=== PATIENT | female | born 1930 | race African-American/Black ===

== ENCOUNTER 2017-09-18 19:32 | Inpatient (IN) | payer MEDICARE ==
[~2017-09-18] VITALS: Ht 162.6 cm; Wt 63.5 kg
[~2017-09-18 19:32] MED LIST: HUMALOG100 UNIT/4 SUBQ
[2017-09-18] MEDS ORDERED: Sodium Chloride 500ML 500 ML IV ONE (19:45)
[2017-09-18 20:25] LABS: BASOPHILS % (AUTO) 1.3 % (0.0-2.0); LYMPHOCYTES % (AUTO) 27.3 % (20.0-45.0); MEAN CORPUSCULAR HEMOGLOBIN 26.6 PG (27.0-31.0); MEAN CORPUSCULAR HGB CONC 30.3 G/DL (32.0-36.0); MEAN CORPUSCULAR VOLUME 88 FL (80-99); MEAN PLATELET VOLUME 6.3 FL (6.5-10.1); MONOCYTES % (AUTO) 5.7 % (1.0-10.0); NEUTROPHILS % (AUTO) 64.7 % (45.0-75.0); PLATELET COUNT 173 K/UL (150-450); RED BLOOD COUNT 3.94 M/UL (4.20-5.40); RED CELL DISTRIBUTION WIDTH 13.5 % (11.6-14.8); WHITE BLOOD COUNT 8.4 K/UL (4.8-10.8)
[2017-09-18 20:37] LABS: ANION GAP 10 mmol/L (5-15); CALCIUM 9.1 MG/DL (8.5-10.1); CARBON DIOXIDE 22 MMOL/L (21-32); CHLORIDE 108 MMOL/L (98-107); POTASSIUM 4.4 MMOL/L (3.5-5.1); SODIUM 140 MMOL/L (136-145)
[2017-09-18 20:51] LABS: ALANINE AMINOTRANSFERASE 15 U/L (12-78); ALBUMIN/GLOBULIN RATIO 0.6 (1.0-2.7); ASPARTATE AMINO TRANSFERASE 31 U/L (15-37); CKMB < 0.5 NG/ML (0.0-3.6); TOTAL PROTEIN 8.3 G/DL (6.4-8.2)
[2017-09-18] MEDS ORDERED: Enoxaparin 60mg Inj SUBQ ONE (22:00)
[2017-09-18 22:01] VITALS: BP 176/127
[2017-09-18 22:14] LABS: INR 1.2 (0.9-1.1); PROTHROMBIN TIME 12.3 SEC (9.30-11.50)
[2017-09-18 22:16] LABS: APPEARANCE,URINE CLEAR; KETONES,URINE 2+ (NEGATIVE); LEUKOCYTE ESTERASE ,URINE NEGATIVE (NEGATIVE); NITRITE,URINE NEGATIVE (NEGATIVE); PH,URINE 6 (4.5-8.0); PROTEIN,URINE 3+ (NEGATIVE); UROBILINOGEN,URINE NORMAL MG/DL (0.0-1.0)
[2017-09-18 22:25] LABS: BACTERIA,URINE FEW /HPF; SQUAMOUS EPITHELIAL CELL,UR FEW /LPF (NONE/OCC); WBC,URINE 0-2 /HPF (0 - 2)
[2017-09-18 22:43] VITALS: BP 149/59
--- NOTE | 2017-09-18 22:51 | Emergency Room Report ---
History of Present Illness General Chief Complaint: Altered Level of Consciousness Source: Family Member, EMS Present Illness HPI 87-year-old female presents ED for evaluation. EMS states that patient was found altered and her family's car tonight. Family states that patient is been more altered unusual for last 2 days. Family states that patient initially complained of some chest pain earlier today. Upon arrival patient showing no signs of distress. Unable to provide any additional history at this time. No other aggravating relieving factors. No other associated symptoms Allergies: Coded Allergies: No Known Allergies (Unverified , 09/18/17) Patient History Past Medical History: DM, HTN Past Surgical History: none Pertinent Family History: none Social History: Denies: smoking, alcohol use, drug use Last Menstrual Period: N/A Immunizations: UTD Reviewed Nursing Documentation: PMH: Agreed, PSxH: Agreed Nursing Documentation-PMH Hx Cardiac Problems: Yes - CAD Hx Hypertension: Yes Hx Diabetes: Yes Review of Systems All Other Systems: limited Physical Exam Vital Signs Date Time Temp Pulse Resp B/P (MAP) Pulse Ox O2 Delivery O2 Flow Rate FiO2 09/18/17 19:27 97.3 86 18 126/76 99 Room Air Sp02 EP Interpretation: reviewed, normal General Appearance: lethargic Head: normocephalic ENT: normal ENT inspection Respiratory: chest non-tender, lungs clear, normal breath sounds, speaking full sentences Cardiovascular #1: regular rate, rhythm, no edema Gastrointestinal: normal bowel sounds, non tender, soft, non-distended, no guarding, no rebound Rectal: deferred Genitourinary: no CVA tenderness Musculoskeletal: normal inspection Neurologic: other - lethargic Psychiatric: other - lethargic Skin: normal inspection Lymphatic: normal inspection Procedures Critical Care Time Critical Care Time i. I feel this is a highly complex case requiring extensive working including EKG/Rhythm strip, Xray/CT/US, Blood/urine lab work, repeat exams while in ED, and administration of strong opiates/narcotics for pain control, admission to hospital or close patient follow up. Total time: 30 min bedside evaluation and treatment excludes procedures (EKG). Reason for critical care: Altered level of consciousness, positive troponin Possible complications: hypotension, hypertension, MO, shock, arrhythmias, metabolic acidosis, end organ damage, respiratory failure. Interventions: Labs, IV fluids, EKG, chest x-ray, CT head, aspirin, Lovenox Course: Patient brought in with altered mental status. CT head negative. Troponin elevated. Family states that patient did endorse some chest pain earlier today. EKG shows no evidence of ST elevation. Given aspirin rectal. Given Lovenox. Consultations: nursing staff, EMS, family Performed by: Dr Davila Tolerated well condition = critical j. because of unstable vital signs this patient had a condition that could potentially threaten life or limb. I feel this is a critical patient who required my full attention while patient was considered critical. Total Critical Care Time excluding procedures was greater than 35 minutes Medical Decision Making Diagnostic Impression: Primary Impression: Altered level of consciousness Additional Impression: NSTEMI (non-ST elevated myocardial infarction) ER Course Hospital Course 87-year-old female presents with altered mental status Differential diagnoses include: MO/unstable angina, dehydration, sepsis, UTI Clinical course She placed on stretcher. After initial history and physical I ordered labs, IV fluid, EKG, chest x-ray, CT head labs reviewed- no leukocytosis, electrolytes ok, trop elevated EKG-no evidence of ST elevation Chest x-ray- no acute process CT head - chronic ischemic changes Patient is altered here. Endorsing chest pain. However family states that patient did endorse chest pain earlier today Given aspirin, Lovenox. Case discussed with Dr. Judge and he agreed to accept the patient to his service for further care and support Dr Childs (cardiology) will consult I. I feel this is a highly complex case requiring extensive working including EKG/Rhythm strip, Xray/CT/US, Blood/urine lab work, repeat exams while in ED, and administration of strong opiates/narcotics for pain control, admission to hospital or close patient follow up. Diagnosis - NSTEMI, ALOC admitted to [facility] in critical condition Labs Test 09/18/17 20:10 09/18/17 21:46 White Blood Count 8.4 K/UL (4.8-10.8) Red Blood Count 3.94 M/UL (4.20-5.40) Hemoglobin 10.5 G/DL (12.0-16.0) Hematocrit 34.6 % (37.0-47.0) Mean Corpuscular Volume 88 FL (80-99) Mean Corpuscular Hemoglobin 26.6 PG (27.0-31.0) Mean Corpuscular Hemoglobin Concent 30.3 G/DL (32.0-36.0) Red Cell Distribution Width 13.5 % (11.6-14.8) Platelet Count 173 K/UL (150-450) Mean Platelet Volume 6.3 FL (6.5-10.1) Neutrophils (%) (Auto) 64.7 % (45.0-75.0) Lymphocytes (%) (Auto) 27.3 % (20.0-45.0) Monocytes (%) (Auto) 5.7 % (1.0-10.0) Eosinophils (%) (Auto) 1.0 % (0.0-3.0) Basophils (%) (Auto) 1.3 % (0.0-2.0) Prothrombin Time 12.3 SEC (9.30-11.50) Prothromb Time International Ratio 1.2 (0.9-1.1) Activated Partial Thromboplast Time 32 SEC (23-33) Sodium Level 140 MMOL/L (136-145) Potassium Level 4.4 MMOL/L (3.5-5.1) Chloride Level 108 MMOL/L (98-107) Carbon Dioxide Level 22 MMOL/L (21-32) Anion Gap 10 mmol/L (5-15) Blood Urea Nitrogen 10 mg/dL (7-18) Creatinine 1.0 MG/DL (0.55-1.30) Estimat Glomerular Filtration Rate mL/min (>60) Glucose Level 189 MG/DL (74-106) Lactic Acid Level 1.20 mmol/L (0.66-2.22) Calcium Level 9.1 MG/DL (8.5-10.1) Total Bilirubin 0.4 MG/DL (0.2-1.0) Aspartate Amino Transf (AST/SGOT) 31 U/L (15-37) Alanine Aminotransferase (ALT/SGPT) 15 U/L (12-78) Alkaline Phosphatase 38 U/L (46-116) Total Creatine Kinase 149 U/L (26-308) Creatine Kinase MB < 0.5 NG/ML (0.0-3.6) Creatine Kinase MB Relative Index 0.3 Troponin I 0.314 ng/mL (0.000-0.056) Pro-B-Type Natriuretic Peptide 4268 pg/mL (0-125) Total Protein 8.3 G/DL (6.4-8.2) Albumin 3.2 G/DL (3.4-5.0) Globulin 5.1 g/dL Albumin/Globulin Ratio 0.6 (1.0-2.7) Urine Color Pale yellow Urine Appearance Clear Urine pH 6 (4.5-8.0) Urine Specific [place] 1.010 (1.005-1.035) Urine Protein 3+ (NEGATIVE) Urine Glucose (UA) Negative (NEGATIVE) Urine Ketones 2+ (NEGATIVE) Urine Occult Blood 3+ (NEGATIVE) Urine Nitrite Negative (NEGATIVE) Urine Bilirubin Negative (NEGATIVE) Urine Urobilinogen Normal MG/DL (0.0-1.0) Urine Leukocyte Esterase Negative (NEGATIVE) Urine RBC 5-10 /HPF (0 - 2) Urine WBC 0-2 /HPF (0 - 2) Urine Squamous Epithelial Cells Few /LPF (NONE/OCC) Urine Bacteria Few /HPF (NONE) EKG Diagnostic Results Rate: normal Rhythm: NSR ST Segments: no acute changes ASA given to the pt in ED: Yes Rhythm Strip Diag. Results EP Interpretation: yes Rhythm: NSR, no PVC's, no ectopy Chest X-Ray Diagnostic Results Chest X-Ray Diagnostic Results : Chest X-Ray Ordered: Yes # of Views/Limited/Complete: 1 View Indication: Chest Pain EP Interpretation: Yes Interpretation: no consolidation, no effusion, no pneumothorax, no acute cardiopulmonary disease Impression: No acute disease Electronically Signed by: Electronically signed by Jimenez Davila MD CT/MRI/US Diagnostic Results CT/MRI/US Diagnostic Results : Imaging Test Ordered: CT head Impression chronic changes. no acute process Last Vital Signs Date Time Temp Pulse Resp B/P (MAP) Pulse Ox O2 Delivery O2 Flow Rate FiO2 09/18/17 22:43 97.3 72 23 149/59 100 Room Air Status: improved Disposition: ADMITTED INPATIENT Condition: Critical Referrals: Gerald Judge MD (PCP) JIMENEZ DAVILA M.D. Sep 18, 2017 22:51
[2017-09-19 04:00] VITALS: BP 154/70
[2017-09-19 07:43] LABS: BASOPHILS % (AUTO) 1.7 % (0.0-2.0); EOSINOPHILS % (AUTO) 3.1 % (0.0-3.0); MEAN CORPUSCULAR HEMOGLOBIN 28.4 PG (27.0-31.0); MEAN CORPUSCULAR HGB CONC 32.8 G/DL (32.0-36.0); MEAN CORPUSCULAR VOLUME 86 FL (80-99); MEAN PLATELET VOLUME 6.8 FL (6.5-10.1); MONOCYTES % (AUTO) 7.1 % (1.0-10.0); PLATELET COUNT 157 K/UL (150-450); RED BLOOD COUNT 3.61 M/UL (4.20-5.40); RED CELL DISTRIBUTION WIDTH 13.4 % (11.6-14.8); WHITE BLOOD COUNT 6.5 K/UL (4.8-10.8)
[2017-09-19 07:53] LABS: AMMONIA < 3 umol/L (11-32)
[2017-09-19 08:00] VITALS: BP 150/70
[2017-09-19 08:10] LABS: ALANINE AMINOTRANSFERASE 9 U/L (12-78); ALBUMIN/GLOBULIN RATIO 0.6 (1.0-2.7); ANION GAP 8 mmol/L (5-15); ASPARTATE AMINO TRANSFERASE 15 U/L (15-37); CALCIUM 8.7 MG/DL (8.5-10.1); CARBON DIOXIDE 24 MMOL/L (21-32); CHLORIDE 111 MMOL/L (98-107); CHOLESTEROL 116 MG/DL (< 200); CHOLESTEROL/HDL RATIO 2.2 (3.3-4.4); CREATININE 0.9 MG/DL (0.55-1.30); POTASSIUM 3.1 MMOL/L (3.5-5.1); SODIUM 143 MMOL/L (136-145); THYROID STIMULATING HORMONE 0.894 uiU/mL (0.358-3.740); TOTAL PROTEIN 7.6 G/DL (6.4-8.2)
[2017-09-19 08:16] LABS: HEMOGLOBIN A1C 5.7 % (4.3-6.0)
[2017-09-19] MEDS: Aspirin EC 81mg tab ORAL SCH (09:39)
[2017-09-19] MEDS: Vitamin B-12 500mcg tab ORAL SCH (09:39)
[2017-09-19] MEDS: Docusate 100mg cap ORAL SCH ×2 (09:40→17:24)
--- NOTE | 2017-09-19 10:54 | Diagnostic Imaging Report ---
Indication: Altered mental status Technique: XRAY Chest 1v Comparison: None Findings: Heart size and mediastinal contours are within normal limits given technique. Atherosclerotic calcifications noted within the aorta, which is mildly tortuous. Probable coronary arterial calcifications. No focal airspace consolidation, pleural effusion or pneumothorax. There is mild biapical pleural capping. The bones appear diffusely demineralized. No acute osseous abnormality is appreciated. Impression: No focal consolidation. Atherosclerosis and probable coronary artery calcifications.
[2017-09-19 12:09] VITALS: BP 157/75
--- NOTE | 2017-09-19 12:37 | History & Physical ---
History and Physical History & Physicial H & P Dictated [id number] MD Nu Rubio Peiman MD Sep 19, 2017 12:37
--- NOTE | 2017-09-19 13:04 | Diagnostic Imaging Report ---
Indication: Alteration in level of consciousness Technique: MRI the brain performed utilizing T1 sagittal, T2 axial, T1 FLAIR axial, T2 FLAIR axial, T2*GRE and diffusion axial images without gadolinium. Comparison: Correlation made to concurrent CT of the head Findings: Images degraded by patient motion. No focus of abnormal diffusion signal hyperintensity with corresponding signal dropout on ADC to suggest acute infarct. There is T2 signal hyperintensity/T1 signal hypointensity in the right parietal lobe reflect sequela of chronic ischemia. The sulci, ventricles and cisterns are prominent consistent with atrophy. Periventricular and supratentorial white matter T2 hyperintensity are seen without mass effect. There is no shift of midline structures. No significant extra-axial collections of fluid or blood are demonstrated. The sella and parasellar regions are unremarkable. Expected signal flow voids are seen of the vessels of the skull base. Visualized mastoid air cells and paranasal sinuses are unremarkable. No focal bony calvarium or soft tissue lesions are seen. Impression: Images degraded by patient motion. No evidence of acute infarct. No abnormal mass effect or midline shift. Sequela of remote ischemia in the right parietal lobe. Atrophy and nonspecific subcortical and periventricular white matter T2 hyperintensity reflective of sequela of chronic microvascular ischemia.
--- NOTE | 2017-09-19 13:11 | Neurology Progress Note ---
Objective Physical Exam Last Vital Signs Date Time Temp Pulse Resp B/P (MAP) Pulse Ox O2 Delivery O2 Flow Rate FiO2 09/19/17 12:09 97.2 89 20 157/75 100 09/19/17 04:00 Room Air Laboratory Tests Test 09/18/17 20:10 09/18/17 21:46 09/19/17 07:15 White Blood Count 8.4 K/UL (4.8-10.8) 6.5 K/UL (4.8-10.8) Red Blood Count 3.94 M/UL (4.20-5.40) L 3.61 M/UL (4.20-5.40) L Hemoglobin 10.5 G/DL (12.0-16.0) L 10.3 G/DL (12.0-16.0) L Hematocrit 34.6 % (37.0-47.0) L 31.3 % (37.0-47.0) L Mean Corpuscular Volume 88 FL (80-99) 86 FL (80-99) Mean Corpuscular Hemoglobin 26.6 PG (27.0-31.0) L 28.4 PG (27.0-31.0) Mean Corpuscular Hemoglobin Concent 30.3 G/DL (32.0-36.0) L 32.8 G/DL (32.0-36.0) Red Cell Distribution Width 13.5 % (11.6-14.8) 13.4 % (11.6-14.8) Platelet Count 173 K/UL (150-450) 157 K/UL (150-450) Mean Platelet Volume 6.3 FL (6.5-10.1) L 6.8 FL (6.5-10.1) Neutrophils (%) (Auto) 64.7 % (45.0-75.0) 48.0 % (45.0-75.0) Lymphocytes (%) (Auto) 27.3 % (20.0-45.0) 40.0 % (20.0-45.0) Monocytes (%) (Auto) 5.7 % (1.0-10.0) 7.1 % (1.0-10.0) Eosinophils (%) (Auto) 1.0 % (0.0-3.0) 3.1 % (0.0-3.0) H Basophils (%) (Auto) 1.3 % (0.0-2.0) 1.7 % (0.0-2.0) Prothrombin Time 12.3 SEC (9.30-11.50) H Prothromb Time International Ratio 1.2 (0.9-1.1) H Activated Partial Thromboplast Time 32 SEC (23-33) Sodium Level 140 MMOL/L (136-145) 143 MMOL/L (136-145) Potassium Level 4.4 MMOL/L (3.5-5.1) 3.1 MMOL/L (3.5-5.1) L Chloride Level 108 MMOL/L (98-107) H 111 MMOL/L (98-107) H Carbon Dioxide Level 22 MMOL/L (21-32) 24 MMOL/L (21-32) Anion Gap 10 mmol/L (5-15) 8 mmol/L (5-15) Blood Urea Nitrogen 10 mg/dL (7-18) 8 mg/dL (7-18) Creatinine 1.0 MG/DL (0.55-1.30) 0.9 MG/DL (0.55-1.30) Estimat Glomerular Filtration Rate mL/min (>60) mL/min (>60) Glucose Level 189 MG/DL (74-106) H 119 MG/DL (74-106) H Lactic Acid Level 1.20 mmol/L (0.66-2.22) Calcium Level 9.1 MG/DL (8.5-10.1) 8.7 MG/DL (8.5-10.1) Total Bilirubin 0.4 MG/DL (0.2-1.0) 0.3 MG/DL (0.2-1.0) Aspartate Amino Transf (AST/SGOT) 31 U/L (15-37) 15 U/L (15-37) Alanine Aminotransferase (ALT/SGPT) 15 U/L (12-78) 9 U/L (12-78) L Alkaline Phosphatase 38 U/L (46-116) L 33 U/L (46-116) L Total Creatine Kinase 149 U/L (26-308) Creatine Kinase MB < 0.5 NG/ML (0.0-3.6) Creatine Kinase MB Relative Index 0.3 Troponin I 0.314 ng/mL (0.000-0.056) 0.289 ng/mL (0.000-0.056) Pro-B-Type Natriuretic Peptide 4268 pg/mL (0-125) H Total Protein 8.3 G/DL (6.4-8.2) H 7.6 G/DL (6.4-8.2) Albumin 3.2 G/DL (3.4-5.0) L 2.9 G/DL (3.4-5.0) L Globulin 5.1 g/dL 4.7 g/dL Albumin/Globulin Ratio 0.6 (1.0-2.7) L 0.6 (1.0-2.7) L Urine Color Pale yellow Urine Appearance Clear Urine pH 6 (4.5-8.0) Urine Specific [place] 1.010 (1.005-1.035) Urine Protein 3+ (NEGATIVE) H Urine Glucose (UA) Negative (NEGATIVE) Urine Ketones 2+ (NEGATIVE) H Urine Occult Blood 3+ (NEGATIVE) H Urine Nitrite Negative (NEGATIVE) Urine Bilirubin Negative (NEGATIVE) Urine Urobilinogen Normal MG/DL (0.0-1.0) Urine Leukocyte Esterase Negative (NEGATIVE) Urine RBC 5-10 /HPF (0 - 2) H Urine WBC 0-2 /HPF (0 - 2) Urine Squamous Epithelial Cells Few /LPF (NONE/OCC) Urine Bacteria Few /HPF (NONE) Hemoglobin A1c 5.7 % (4.3-6.0) Ammonia < 3 umol/L (11-32) L Triglycerides Level 62 MG/DL (30-150) Cholesterol Level 116 MG/DL (< 200) LDL Cholesterol 56 mg/dL (<100) HDL Cholesterol 52 MG/DL (40-60) Cholesterol/HDL Ratio 2.2 (3.3-4.4) L Thyroid Stimulating Hormone (TSH) 0.894 uiU/mL (0.358-3.740) Free Thyroxine 1.79 NG/DL (0.76-1.46) H Free Triiodothyronine 2.0 pg/mL (2.3-4.2) L Impression/Recommendations Problems: (1) Cognitive loss, 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
[2017-09-19 16:00] VITALS: BP 133/52
[2017-09-19] MEDS: Montelukast 10mg tablet ORAL SCH (17:24)
[2017-09-19] MEDS: Flonase Nasal Inhaler 16gm NASAL SCH (17:26)
--- NOTE | 2017-09-19 17:46 | Consultation ---
DATE OF CONSULTATION: 09/19/2017 NEUROLOGICAL CONSULTATION REQUESTING PHYSICIAN: Gerald Judge M.D. HISTORY OF PRESENT ILLNESS: The patient is an 87-year-old female, seen in neurological consultation to evaluate the progressive changes in mental status. The patient with preexistent evidence of cognitive loss was noted that last couple of days, she has had becoming increasingly confused and disoriented. In addition, family indicated that she was complaining of some chest pain. Paramedics were called to the scene where she in a family car. The patient was brought to this facility with vital signs stable, blood pressure 126/76 and temperature 97.3 degrees. The patient appeared to be without evidence of distress. She was somewhat lethargic. She had a CT of the brain done and that revealed chronic ischemic changes. Chest x-ray, no evidence of acute process. EKG normal sinus rhythm. No evidence of ST elevation. Initial diagnostic studies included a chest x-ray, which revealed no focal consolidation. There was atherosclerosis and probably coronary artery calcification. Laboratory work included the mild anemia, hemoglobin 10.5 and hematocrit 34.6. Coagulation panel with INR 1.2. Urinalysis, 2+ ketones, 3+ protein. Chemistry panel with blood sugar 189. Elevated BNP 2268. Total protein of 8.3. Albumin 3.2. Normal TSH and lipid panel with elevated troponin of 0.314. Following admission until present, there was no much changes in her status. She was was maintained in bed. Noted poor calorie intake, but no paroxysmal events. PAST MEDICAL HISTORY: The patient has a history of diabetes, history of cognitive loss and history of weakness in her both lower extremities, being unable to ambulate, reportedly helped to be transferred from bed to wheelchair. Etiology of this was not reported. FAMILY HISTORY: Unavailable. SOCIAL HISTORY: Lives with her children. She is single: There is no evidence of previous alcohol or drug abuse. Nonsmoker. REVIEW OF SYMPTOMS: The patient indicates she has difficulty ambulation. Otherwise, she is feeling well and not sure why she is in the hospital. She denies having headache or dizziness. No chest pain. No palpitations. No respiratory problems. Denies abdominal pain or discomfort with no urinary or bowel incontinence. PHYSICAL EXAMINATION: GENERAL: A well-developed and well-nourished, elderly female, not in acute distress, lying comfortably in bed. VITAL SIGNS: Now stable, blood pressure 127/80 and respirations 14. HEENT: Head, normocephalic. No evidence of trauma. Eyes, ears, and throat are clear. NECK: Supple. No meningeal signs. MUSCULOSKELETAL: Unremarkable. Peripheral pulses 1+ symmetric. MENTAL STATUS: She is alert and oriented to her name, but states her age of 70. She was unable to give full address, only City, [place]. She was not sure what year it is. Gave her some the names of her family. She was able to follow simple commands. CRANIAL NERVE II: Pupils both responding to light and accommodation. Extraocular movement intact. No nystagmus. CRANIAL NERVE V: Normal corneal responses. CRANIAL NERVE VII: No facial asymmetry. CRANIAL NERVE VIII: Slightly decreased hearing. CRANIAL NERVES IX THROUGH XII: Tongue is in midline. Symmetric palate elevation. MOTOR EXAMINATION: Able to move both upper extremities against the gravity, although she preferred to keep her arms crossed on her chest. The patient was unable to lift both lower extremities, although she was able to slightly bend both knees and move toes. She has a left big toe amputated. Muscle tone normal. Deep tendon reflexes depressed, biceps, triceps, brachioradialis and knee and ankle jerks. Plantar responses flexor on the right and unable to test on the left. The patient was withdrawing both feet. Gait unable to test. The patient reportedly unable to ambulate due to weakness in her legs. IMPRESSION: 1. 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 2. Paraparesis, rule out a peripheral neuropathy, rule out lumbar spinal stenosis. 3. Diabetes type 2. 4. Coronary artery disease. 5. History of hypertension. RECOMMENDATIONS: Recheck B12, folate, thyroid function, PAMELA, sedimentation rate. Have a cardiac reassessment regarding abnormal troponin. Review previous records related to her paraparesis. Treatment include Ecotrin 81 mg daily and statins. Thank you for allowing me to see this interesting patient in neurological consultation. Jung Emerson M.D. DR: ORLANDO JOB#: [id number] CC:
--- NOTE | 2017-09-19 17:50 | Cardiology Progress Note ---
Assessment/Plan Assessment/Plan sammy enzyem abn noted ? sig encepahloapthy abn cardiac enzyem bellow thershold by manufacture for mi criterea by WHO need echo repeat enzyme en ekg to see if any peak or brian or swma can be identified many joseluis will follow [id number] Objective Last 24 Hour Vital Signs Date Time Temp Pulse Resp B/P (MAP) Pulse Ox O2 Delivery O2 Flow Rate FiO2 09/19/17 17:29 66 133/52 09/19/17 16:00 97.3 65 18 133/52 98 Room Air 09/19/17 16:00 66 09/19/17 12:09 97.2 89 20 157/75 100 09/19/17 12:00 71 09/19/17 09:39 80 150/70 09/19/17 08:00 97.0 80 19 150/70 100 09/19/17 08:00 72 09/19/17 04:00 89 09/19/17 04:00 98.0 82 20 154/70 99 Room Air 09/18/17 23:12 149/59 09/18/17 22:43 97.3 72 23 149/59 100 Room Air 09/18/17 22:01 97.3 75 16 176/127 100 Room Air 09/18/17 19:27 97.3 86 18 126/76 99 Room Air Intake and Output 09/19/17 09/20/17 19:00 07:00 Intake Total 120 ml Balance 120 ml Intake Oral 120 ml Laboratory Tests Test 09/18/17 20:10 09/18/17 21:46 09/19/17 07:15 White Blood Count 8.4 K/UL (4.8-10.8) 6.5 K/UL (4.8-10.8) Red Blood Count 3.94 M/UL (4.20-5.40) L 3.61 M/UL (4.20-5.40) L Hemoglobin 10.5 G/DL (12.0-16.0) L 10.3 G/DL (12.0-16.0) L Hematocrit 34.6 % (37.0-47.0) L 31.3 % (37.0-47.0) L Mean Corpuscular Volume 88 FL (80-99) 86 FL (80-99) Mean Corpuscular Hemoglobin 26.6 PG (27.0-31.0) L 28.4 PG (27.0-31.0) Mean Corpuscular Hemoglobin Concent 30.3 G/DL (32.0-36.0) L 32.8 G/DL (32.0-36.0) Red Cell Distribution Width 13.5 % (11.6-14.8) 13.4 % (11.6-14.8) Platelet Count 173 K/UL (150-450) 157 K/UL (150-450) Mean Platelet Volume 6.3 FL (6.5-10.1) L 6.8 FL (6.5-10.1) Neutrophils (%) (Auto) 64.7 % (45.0-75.0) 48.0 % (45.0-75.0) Lymphocytes (%) (Auto) 27.3 % (20.0-45.0) 40.0 % (20.0-45.0) Monocytes (%) (Auto) 5.7 % (1.0-10.0) 7.1 % (1.0-10.0) Eosinophils (%) (Auto) 1.0 % (0.0-3.0) 3.1 % (0.0-3.0) H Basophils (%) (Auto) 1.3 % (0.0-2.0) 1.7 % (0.0-2.0) Prothrombin Time 12.3 SEC (9.30-11.50) H Prothromb Time International Ratio 1.2 (0.9-1.1) H Activated Partial Thromboplast Time 32 SEC (23-33) Sodium Level 140 MMOL/L (136-145) 143 MMOL/L (136-145) Potassium Level 4.4 MMOL/L (3.5-5.1) 3.1 MMOL/L (3.5-5.1) L Chloride Level 108 MMOL/L (98-107) H 111 MMOL/L (98-107) H Carbon Dioxide Level 22 MMOL/L (21-32) 24 MMOL/L (21-32) Anion Gap 10 mmol/L (5-15) 8 mmol/L (5-15) Blood Urea Nitrogen 10 mg/dL (7-18) 8 mg/dL (7-18) Creatinine 1.0 MG/DL (0.55-1.30) 0.9 MG/DL (0.55-1.30) Estimat Glomerular Filtration Rate mL/min (>60) mL/min (>60) Glucose Level 189 MG/DL (74-106) H 119 MG/DL (74-106) H Lactic Acid Level 1.20 mmol/L (0.66-2.22) Calcium Level 9.1 MG/DL (8.5-10.1) 8.7 MG/DL (8.5-10.1) Total Bilirubin 0.4 MG/DL (0.2-1.0) 0.3 MG/DL (0.2-1.0) Aspartate Amino Transf (AST/SGOT) 31 U/L (15-37) 15 U/L (15-37) Alanine Aminotransferase (ALT/SGPT) 15 U/L (12-78) 9 U/L (12-78) L Alkaline Phosphatase 38 U/L (46-116) L 33 U/L (46-116) L Total Creatine Kinase 149 U/L (26-308) Creatine Kinase MB < 0.5 NG/ML (0.0-3.6) Creatine Kinase MB Relative Index 0.3 Troponin I 0.314 ng/mL (0.000-0.056) 0.289 ng/mL (0.000-0.056) Pro-B-Type Natriuretic Peptide 4268 pg/mL (0-125) H Total Protein 8.3 G/DL (6.4-8.2) H 7.6 G/DL (6.4-8.2) Albumin 3.2 G/DL (3.4-5.0) L 2.9 G/DL (3.4-5.0) L Globulin 5.1 g/dL 4.7 g/dL Albumin/Globulin Ratio 0.6 (1.0-2.7) L 0.6 (1.0-2.7) L Urine Color Pale yellow Urine Appearance Clear Urine pH 6 (4.5-8.0) Urine Specific [place] 1.010 (1.005-1.035) Urine Protein 3+ (NEGATIVE) H Urine Glucose (UA) Negative (NEGATIVE) Urine Ketones 2+ (NEGATIVE) H Urine Occult Blood 3+ (NEGATIVE) H Urine Nitrite Negative (NEGATIVE) Urine Bilirubin Negative (NEGATIVE) Urine Urobilinogen Normal MG/DL (0.0-1.0) Urine Leukocyte Esterase Negative (NEGATIVE) Urine RBC 5-10 /HPF (0 - 2) H Urine WBC 0-2 /HPF (0 - 2) Urine Squamous Epithelial Cells Few /LPF (NONE/OCC) Urine Bacteria Few /HPF (NONE) Hemoglobin A1c 5.7 % (4.3-6.0) Ammonia < 3 umol/L (11-32) L Triglycerides Level 62 MG/DL (30-150) Cholesterol Level 116 MG/DL (< 200) LDL Cholesterol 56 mg/dL (<100) HDL Cholesterol 52 MG/DL (40-60) Cholesterol/HDL Ratio 2.2 (3.3-4.4) L Thyroid Stimulating Hormone (TSH) 0.894 uiU/mL (0.358-3.740) Free Thyroxine 1.79 NG/DL (0.76-1.46) H Free Triiodothyronine 2.0 pg/mL (2.3-4.2) DAVID LINDER Sep 19, 2017 17:50
[2017-09-19] MEDS: Atorvastatin 80mg tab ORAL SCH (20:54)
--- NOTE | 2017-09-19 22:16 | History and Physical Report ---
DATE OF ADMISSION: 09/18/2017 CHIEF COMPLAINT: Altered mental status. HISTORY OF PRESENT ILLNESS: This is an 87-year-old female with history of hypertension, diabetes, and chronic kidney disease, who [place] [facility]. Per family over the last two days, the patient has become increasingly confused and altered mentally. She was brought into the emergency room at [facility] where she was noted to have an elevated troponin, however, EKG did not show any ST elevation. The patient denies any chest pain. Also, the patient appears to be confused. The patient may have initially complained of chest pain, but in the ER, she has no chest pains. The patient will be admitted for cardiology evaluation as well as a Neurology evaluation for her acute confusional state. ALLERGIES: The patient has no known drug allergies. PAST MEDICAL HISTORY: Significant for diabetes, hypertension, osteoarthritis, and history of peripheral vascular disease, status post amputation of toes. MEDICATIONS: Home medications, reconciled in the computer. SOCIAL HISTORY: The patient is and has 9 children. No smoking, drugs, or alcohol use. FAMILY HISTORY: Noncontributory. REVIEW OF SYSTEMS: The patient is confused, unable to get a good review of systems. Pertinent positives and negatives per history of present illness. PHYSICAL EXAMINATION: VITAL SIGNS: Blood pressure is 126/76, pulse of 86, respiratory rate 18, temperature 97.3 degrees, and saturating 99% on room air. GENERAL: This is a well-nourished and well-developed female, looking younger than the stated age, in no acute distress. HEENT: Normocephalic and atraumatic. Extraocular muscles are intact. Pupils equal, round, and reactive to light. Anicteric sclerae. Oropharynx is clear. Poor dentition. NECK: Supple. CHEST: Clear to auscultation without any wheezes, rales, or rhonchi. CARDIOVASCULAR: Normal S1 and S2. No murmurs, rubs, or gallops. ABDOMEN: Bowel sounds are positive. Belly is soft, nontender, and nondistended. No hepatosplenomegaly appreciated. EXTREMITIES: No clubbing, cyanosis, or edema. SKIN: Clear without any rashes or petechiae. NEUROLOGIC: The patient is awake, alert. Poorly oriented to person and place. No sensory or motor deficit appreciated. Gait was not evaluated. LABORATORY AND DIAGNOSTIC DATA: The patient's EKG shows no evidence of ST elevation. Chest x-ray shows no acute disease. CT of the head shows chronic ischemic changes. The other laboratory evaluation, her hemoglobin is 10.5, hematocrit 34.6, both of which are low, WBC is normal at 8.4, and platelet count is 173 with normal differential. INR is 1.2, PTT is 32, and PT is 12.2, which is slightly high. Urinalysis, pale yellow, clear, pH of 6, specific gravity of 1.010, 3+ protein, 2+, ketones, 3+ blood, 5 to 10 red blood cells, and bacteria few. Metabolic panel on admission, sodium was 140, potassium 4.4, chloride is high at 108, carbon dioxide is 22, anion gap 10, BUN 10, creatinine is 1.0, and glucose is high at 189. Calcium is 9.1. Total bilirubin 0.4, AST 31, and ALT is 15. Creatine kinase is 149. Troponin is elevated at 0.314. Beta-natriuretic peptide is elevated at 4268. Total protein is high at 8.3. Albumin is 3.2, which is low. IMPRESSION AND PLAN: This is an 87-year-old female, admitted with altered mental status and elevated troponin. The patient will be admitted to the telemetry for the following medical problems: 1. Non-ST elevation myocardial infarction with evidence of elevated troponin. We will trend troponins. Get Cardiology consult. Continue with aspirin and Plavix. Echocardiogram will be ordered to rule out any wall motion abnormalities. Stress testing per discussion with wellness nurse. Currently, the patient denies any chest pain. 2. Altered mental status. We will check an MRI of the brain. We will get Neurology consult. Check ammonia level and monitor for any progression. We will check a TSH as well as free T3 and free T4. 3. Hypertension. Continue the patient's losartan. 4. Diabetes mellitus. The patient is on Humulin insulin 70/30 five units daily and insulin sliding scale will be ordered with ADA diet and soft pureed diet. 5. Deep vein thrombosis prophylaxis. Heparin subcutaneous. The patient is Full Code. Case will be discussed with the patient's family. Gerald Judge M.D. DR: JACKI JOB#: [id number] CC: BARBARA
[2017-09-20] VITALS: BP 129/68
[2017-09-20 04:12] VITALS: BP 134/62
--- NOTE | 2017-09-20 05:15 | Consultation ---
DATE OF CONSULTATION: 09/19/2017 CARDIOLOGY CONSULTATION CONSULTING PHYSICIAN: Gabe Childs M.D. REFERRING PHYSICIAN: Gerald Judge M.D. REASON FOR REFERRAL: Abnormal cardiac enzyme. HISTORY OF PRESENT ILLNESS: This is an elderly female, 87-year-old, who is a very poor historian. Information is obtained from review of the patient's present chart, emergency room data, and clinical coordinator run sheet, as well as some of the records from [facility]. The paramedics found the patient sitting in a vehicle complaining of gradual onset of altered level of consciousness for about two days. The patient was apparently alert, oriented x2, lethargic, in mild to moderate distress. No chest pain. No shortness of breath. No neurological deficits. No headache. No nausea or vomiting reported since then. The patient's vital signs were normal. The patient had an EKG that was performed and was transferred to the emergency room here at [facility]. The patient was seen in the emergency room by emergency room physician and subsequently admitted to the hospital for abnormal cardiac enzymes. Therefore, this consultation was requested. On questioning, the patient denies any chest pain, denies any shortness of breath, but she is a very poor historian as mentioned, it is not sure how much of the information she is giving me is actually accurate. On review of the patient's chart, she has been seen by previously at [facility], and apparently had toxic metabolic encephalopathy. She had a sinus arrest and bradycardia during the episode of emesis, felt to be vasovagal in origin. PAST MEDICAL HISTORY: She has a history of diabetes mellitus, high blood pressure, obesity, osteoarthritis, senile dementia, calcific arterial occlusive disease, hyperlipidemia, history of right femoral bypass graft, which is apparently felt to be patent as of 2016, traumatic history of toe amputation, partial hysterectomy, anemia, prior history of sepsis, renal insufficiency, and chronic constipation. SOCIAL HISTORY: She is . Multiple children who care for her. No smoking, drugs, or alcohol use. REVIEW OF SYSTEMS: GASTROINTESTINAL: Occasional nausea and occasional vomiting. GENITOURINARY: Occasional discomfort on urination. PULMONARY: Occasional coughing. Occasional wheezing. CONSTITUTIONAL: Occasional fevers. PHYSICAL EXAMINATION: GENERAL: Shows to be elderly female and confused, in no respiratory distress. NECK: Supple. No jugular venous distention. No abdominojugular reflux noted. LUNGS: Clear to auscultation and percussion. CARDIAC EXAMINATION: S1 is normal. S2 is normal. Regular rate and rhythm. No heaves, thrills, gallops, or rubs are noted. ABDOMEN: Soft and obese. Positive bowel sounds. EXTREMITIES: There is no clubbing, cyanosis, nor is there any edema. NEUROLOGICAL: She is awake and responsive, but confused. LABORATORY DATA: White count 6.5, hemoglobin 10.3, and platelet count of 157. Sodium is 143, potassium 3.1, chloride 111, bicarbonate 24, BUN of 8, creatinine 0.9, and glucose of 119. Lactic acid level at 1.0. Alkaline phosphatase with liver function tests are normal. Troponin first set was 0.314 and the second set was 0.289. Both of these levels are below the cut off by the french drawer for being consistent with myocardial infarction based on criteria. Albumin is 2.9. Total cholesterol is 116 with an LDL of 56 and HDL of 52. TSH is 0.894, free T4 of 1.79 and free T3 of 2.0. Urinalysis, 3+ occult blood, 2+ ketones, 5 to 10 RBCs, and 0 to 2 WBCs. IMAGING STUDIES: MRI of the brain was performed shows degraded by motion, no evidence of acute infarction. No mass effect or midline shift. Sequelae of remote ischemia in the right parietal lobe, atrophy, and nonspecific subcortical periventricular white matter changes were noted. Her electrocardiogram shows sinus rhythm, leftward axis, and really nonspecific T-wave changes, really no significant changes compared to the EKG performed at [facility] last in 07/2016. ASSESSMENT: 1. Altered mentation. 2. Dementia. 3. Hypertension. 4. Hyperlipidemia. 5. Peripheral vascular disease. 6. Abnormal cardiac enzymes. PLAN: Dr. Judge, this patient was seen in cardiac consultation. The patient unfortunately is a very poor historian. The level of cardiac enzyme abnormalities are below the threshold for possibility of a myocardial injury. Awaiting echocardiogram for evaluation of segmental wall motion abnormalities. Repeat cardiac enzymes to see if any peak or brian will be available will show up on subsequent checking. The patient has had an echocardiogram back in 2015 at [facility] that has shown basically normal left ventricular systolic function with moderate calcified aortic valve at that time. Normal wall motion was noted at that time. Further management will probably depend on the patient's symptoms and/or findings of the repeat cardiac enzymes and EKG and echocardiogram. Thank you for allowing me to participate in the care of this patient. Gabe Childs M.D. DR: JEAN PIERRE JOB#: [id number] CC:
[2017-09-20 08:00] VITALS: BP 153/83
[2017-09-20] MEDS: Docusate 100mg cap ORAL SCH ×2 (09:20→17:38)
[2017-09-20] MEDS: Aspirin EC 81mg tab ORAL SCH (09:20)
[2017-09-20] MEDS: Vitamin B-12 500mcg tab ORAL SCH (09:20)
[2017-09-20] MEDS: Flonase Nasal Inhaler 16gm NASAL SCH (09:20)
[2017-09-20 11:16] LABS: BASOPHILS % (AUTO) 1.4 % (0.0-2.0); EOSINOPHILS % (AUTO) 3.1 % (0.0-3.0); LYMPHOCYTES % (AUTO) 37.5 % (20.0-45.0); MEAN CORPUSCULAR HEMOGLOBIN 27.3 PG (27.0-31.0); MEAN CORPUSCULAR HGB CONC 31.4 G/DL (32.0-36.0); MEAN CORPUSCULAR VOLUME 87 FL (80-99); MEAN PLATELET VOLUME 6.8 FL (6.5-10.1); MONOCYTES % (AUTO) 6.7 % (1.0-10.0); NEUTROPHILS % (AUTO) 51.3 % (45.0-75.0); PLATELET COUNT 180 K/UL (150-450); RED BLOOD COUNT 3.61 M/UL (4.20-5.40); RED CELL DISTRIBUTION WIDTH 13.3 % (11.6-14.8)
[2017-09-20 11:42] LABS: ANION GAP 9 mmol/L (5-15); CALCIUM 8.6 MG/DL (8.5-10.1); CARBON DIOXIDE 24 MMOL/L (21-32); CHLORIDE 112 MMOL/L (98-107); CREATININE 0.9 MG/DL (0.55-1.30); SODIUM 144 MMOL/L (136-145)
[2017-09-20 12:00] VITALS: BP 158/94
--- NOTE | 2017-09-20 12:12 | Wound Care Consultation ---
Wound Assessment Wound Assessment #1: Wound Number: 1 Wound Present on Admission: Yes New Wound: No Status Change of Wound: No Wound Location Body Site Modif: right Wound Location Body Site: sacral Wound Type: pressure ulcer Omid Test: Does not Omid Pressure Ulcer Stage: Deep Tissue Injury Wound Thickness: Full Thickness Wound Length: 1.0 Wound Width: 1.5 Wound Depth: utd Percent of Wound Purple/Maroon: 100 Wound Drainage Amount: None Wound Drainage Odor: None/Absent Tissue Surrounding Wound: full thickness scar tissue Wound General Appearance: Reddened - Maroon Wound Assessment #2: Wound Number: 2 Wound Present on Admission: Yes New Wound: No Wound Location Body Site Modif: left Wound Location Body Site: breast fold Wound Type: erosion Omid Test: Does not Omid Wound Thickness: Partial Thickness Wound Length: 0.2 Wound Width: 4.5 Wound Depth: less than 0.1 Percent of Wound [place]/Red: 100 Wound Drainage Description: [place] Wound Drainage Amount: Scant Wound Drainage Odor: None/Absent Tissue Surrounding Wound: Intact Wound General Appearance: Reddened Wound Comment #1 Right Sacral area DTI pressure ulcer. Surrounding skin with full thickness scar tissue. #2 Mid sacral and left sacral area with full thickness scar tissue. Pt at risk of reopen/resurface of pressure ulcer #3 Left breast fold partial thickness erosion Recommendation -Local wound care as ordered -Keep clean and dry -Turn and reposition -Optimize nutrition -Offload both heels -Heel protector on both heels -Low air loss mattress -Assess and f/u accordingly for any changes SACHA BARRERA RN Sep 20, 2017 12:12
--- NOTE | 2017-09-20 14:20 | Physician Query ---
PLEASE COMPLETE DOCUMENT BEFORE SIGNING Dear Dr. Bee Date: _09/20/2017 CDS Name: _Delfina Lopez MD CDS Phone #_Ext. [phone] Exercise your independent professional judgment when responding to query. Question asked do not imply a particular answer is desired/expected. Clinical Documentation States: "Altered Mental Status" documented in Dr. Judge' History & Physical Clinical Findings Show: "Poorly oriented to person and place" as per Nu' History & Physical "Cognitive loss, probably senile dementia with behavioral abnormalities, now with transient confusion contributed by underlying hyperglycemia and metabolic derangement" as per Ki's Consultation Note Please indicate the nature and chronicity of the condition below: [] Metabolic Encephalopathy [] Toxic Encephalopathy [x] Toxic - Metabolic Encephalopathy [] Progressive Encephalopathy [] Encephalopathy, Other [] Other: [] Not Applicable Severity [x] Acute [] Chronic [] Acute on Chronic [] Unable to determine Condition Present on Admission: [x] Yes [] No []Clinically Undeterminable Please also document in your Progress Notes and/or Discharge Summary and indicate if the condition was present on admission. Gerald Judge M.D. Date & Time [facility]
[2017-09-20 15:39] VITALS: BP 149/93
[2017-09-20] MEDS ORDERED: Potassium Chloride 40 MEQ in Sodium Chloride 500ML 550 ML IV ONE (16:30)
[2017-09-20] MEDS: Montelukast 10mg tablet ORAL SCH (16:46)
[2017-09-20] MEDS ORDERED: Bacitracin Oint UD TOPIC ONE (18:00)
[2017-09-20] MEDS: Enoxaparin 60mg Inj SUBQ SCH (18:37)
--- NOTE | 2017-09-20 19:09 | General Progress Note ---
Assessment/Plan Status: progressing Assessment/Plan This is an 87-year-old female, admitted with altered mental status and elevated troponin. The patient will be admitted to the telemetry for the following medical problems: 1. Non-ST elevation myocardial infarction with evidence of elevated troponin. We will trend troponins.appreciate Cardiology consult. Continue with aspirin and Plavix. follow up Echocardiogram to rule out any wall motion abnormalities. Stress testing per discussion with automobile parker. Currently, the patient denies any chest pain. 2. Altered mental status. We will check an MRI of the brain. Appreciate Neurology consult. 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 Hypertension. Continue the patient's losartan. 4. Diabetes mellitus. The patient is on Humulin insulin 70/30 five units daily and insulin sliding scale will be ordered with ADA diet and soft pureed diet. 5. Deep vein thrombosis prophylaxis. Heparin subcutaneous. The patient is Full Code. Case will be discussed with the patient's family. 6. Acuter DVT left leg: will start Lovenox bid and vascular consult. 7. hypokalemia: Kdur 40 meq once am bmp Subjective Date patient seen: Sep 20, 2017 Allergies: Coded Allergies: AVOCADO (Verified Allergy, Unknown, 09/19/17) Objective Last 24 Hour Vital Signs Date Time Temp Pulse Resp B/P (MAP) Pulse Ox O2 Delivery O2 Flow Rate FiO2 09/20/17 17:38 88 149/93 09/20/17 16:00 75 09/20/17 15:39 98.1 88 18 149/93 100 09/20/17 12:00 97.6 87 20 158/94 96 09/20/17 12:00 83 09/20/17 09:20 88 153/83 09/20/17 08:00 97.8 88 20 153/83 97 09/20/17 08:00 90 09/20/17 04:12 97.9 67 20 134/62 100 Room Air 09/20/17 04:00 62 09/20/17 00:00 98.0 71 20 129/68 99 09/20/17 00:00 68 09/19/17 20:00 61 Intake and Output 09/20/17 09/21/17 19:00 07:00 Intake Total 535.0 ml Balance 535.0 ml Intake Oral 250 ml IV Total 285.0 ml # Voids 1 Laboratory Tests 09/20/17 01:50: Troponin I 0.529H 09/20/17 10:05: Troponin I 0.244H, White Blood Count 7.0, Red Blood Count 3.61L, Hemoglobin 9.9L , Hematocrit 31.4L, Mean Corpuscular Volume 87, Mean Corpuscular Hemoglobin 27.3 , Mean Corpuscular Hemoglobin Concent 31.4L, Red Cell Distribution Width 13.3, Platelet Count 180, Mean Platelet Volume 6.8, Neutrophils (%) (Auto) 51.3, Lymphocytes (%) (Auto) 37.5, Monocytes (%) (Auto) 6.7, Eosinophils (%) (Auto) 3.1H, Basophils (%) (Auto) 1.4, Sodium Level 144, Potassium Level 3.0L, Chloride Level 112H, Carbon Dioxide Level 24, Anion Gap 9, Blood Urea Nitrogen 9 , Creatinine 0.9, Estimat Glomerular Filtration Rate , Glucose Level 126H, Calcium Level 8.6 Height (Feet): 5 Height (Inches): 4.00 Weight (Pounds): 140 General Appearance: no apparent distress, alert, lethargic EENT: PERRL/EOMI, pharynx normal Neck: non-tender, supple Cardiovascular: normal rate, regular rhythm, no gallop/murmur, no JVD Respiratory/Chest: chest wall non-tender, normal breath sounds, no respiratory distress Abdomen: non tender, soft, no mass Extremities: swelling Edema: 1+ Leg (R) Edema: mild edema Neurologic: residence manager II-XII grossly normal, oriented x 3, responsive Skin: warm/dry Lymphatic: normal anterior cervical (L), normal anterior cervical (R), normal posterior cervical (L), normal posterior cervical (R), normal submandibular (L) , normal submandibular (R), normal supraclavicular (L), normal supraclavicular ( R), normal axillary (L), normal axillary (R), normal inguinal (L), normal inguinal (R), normal other Gerald Judge MD Sep 20, 2017 19:09
--- NOTE | 2017-09-20 19:39 | Cardiology Progress Note ---
Assessment/Plan Assessment/Plan 1. Altered mentation. 2. Dementia. 3. Hypertension. 4. Hyperlipidemia. 5. Peripheral vascular disease. 6. Abnormal cardiac enzymes 7. dvt popliteal trop level still mildly abn she is quite demented mri neg for acute infarction tele sinus no on full anticoag with lmwh triple therapy is associated with sig bleedign risks will dc ecotrin keep on plavix as well as anticoagution iwht lmwh d/w dr ang Subjective Cardiovascular: Denies: chest pain, lightheadedness, palpitations Respiratory: Denies: shortness of breath Gastrointestinal/Abdominal: Denies: abdomen distended Genitourinary: Denies: burning Objective Last 24 Hour Vital Signs Date Time Temp Pulse Resp B/P (MAP) Pulse Ox O2 Delivery O2 Flow Rate FiO2 09/20/17 17:38 88 149/93 09/20/17 16:00 75 09/20/17 15:39 98.1 88 18 149/93 100 09/20/17 12:00 97.6 87 20 158/94 96 09/20/17 12:00 83 09/20/17 09:20 88 153/83 09/20/17 08:00 97.8 88 20 153/83 97 09/20/17 08:00 90 09/20/17 04:12 97.9 67 20 134/62 100 Room Air 09/20/17 04:00 62 09/20/17 00:00 98.0 71 20 129/68 99 09/20/17 00:00 68 09/19/17 20:00 61 General Appearance: no apparent distress, alert Neck: no JVD Cardiovascular: normal rate, regular rhythm Respiratory/Chest: lungs clear Abdomen: normal bowel sounds, non tender, soft Extremities: no swelling Intake and Output 09/20/17 09/21/17 19:00 07:00 Intake Total 535.0 ml Balance 535.0 ml Intake Oral 250 ml IV Total 285.0 ml # Voids 1 Laboratory Tests Test 09/20/17 01:50 09/20/17 10:05 Troponin I 0.529 ng/mL (0.000-0.056) 0.244 ng/mL (0.000-0.056) White Blood Count 7.0 K/UL (4.8-10.8) Red Blood Count 3.61 M/UL (4.20-5.40) L Hemoglobin 9.9 G/DL (12.0-16.0) L Hematocrit 31.4 % (37.0-47.0) L Mean Corpuscular Volume 87 FL (80-99) Mean Corpuscular Hemoglobin 27.3 PG (27.0-31.0) Mean Corpuscular Hemoglobin Concent 31.4 G/DL (32.0-36.0) L Red Cell Distribution Width 13.3 % (11.6-14.8) Platelet Count 180 K/UL (150-450) Mean Platelet Volume 6.8 FL (6.5-10.1) Neutrophils (%) (Auto) 51.3 % (45.0-75.0) Lymphocytes (%) (Auto) 37.5 % (20.0-45.0) Monocytes (%) (Auto) 6.7 % (1.0-10.0) Eosinophils (%) (Auto) 3.1 % (0.0-3.0) H Basophils (%) (Auto) 1.4 % (0.0-2.0) Sodium Level 144 MMOL/L (136-145) Potassium Level 3.0 MMOL/L (3.5-5.1) L Chloride Level 112 MMOL/L (98-107) H Carbon Dioxide Level 24 MMOL/L (21-32) Anion Gap 9 mmol/L (5-15) Blood Urea Nitrogen 9 mg/dL (7-18) Creatinine 0.9 MG/DL (0.55-1.30) Estimat Glomerular Filtration Rate mL/min (>60) Glucose Level 126 MG/DL (74-106) H Calcium Level 8.6 MG/DL (8.5-10.1) Microbiology Date/Time Source Procedure Growth Status 09/18/17 20:10 Blood Blood Culture - Preliminary NO GROWTH AFTER 24 HOURS Resulted 09/18/17 20:00 Blood Blood Culture - Preliminary NO GROWTH AFTER 24 HOURS Resulted DAVID HAAS Sep 20, 2017 19:39
[2017-09-20 20:47] VITALS: BP 146/89
[2017-09-20] MEDS ORDERED: Heparin 5000 units/ml inj SUBQ SCH (21:00)
[2017-09-20] MEDS: Atorvastatin 80mg tab ORAL SCH (21:26)
[2017-09-21 00:23] VITALS: BP 138/80
[2017-09-21 04:28] VITALS: BP 140/82
[2017-09-21 08:00] VITALS: BP 161/81
[2017-09-21 08:51] LABS: BASOPHILS % (AUTO) 1.2 % (0.0-2.0); EOSINOPHILS % (AUTO) 2.7 % (0.0-3.0); LYMPHOCYTES % (AUTO) 41.3 % (20.0-45.0); MEAN CORPUSCULAR HEMOGLOBIN 28.2 PG (27.0-31.0); MEAN CORPUSCULAR HGB CONC 32.4 G/DL (32.0-36.0); MEAN CORPUSCULAR VOLUME 87 FL (80-99); MEAN PLATELET VOLUME 7.4 FL (6.5-10.1); MONOCYTES % (AUTO) 7.3 % (1.0-10.0); NEUTROPHILS % (AUTO) 47.5 % (45.0-75.0); PLATELET COUNT 191 K/UL (150-450); RED BLOOD COUNT 3.72 M/UL (4.20-5.40); RED CELL DISTRIBUTION WIDTH 13.5 % (11.6-14.8); WHITE BLOOD COUNT 6.6 K/UL (4.8-10.8)
[2017-09-21] MEDS: Docusate 100mg cap ORAL SCH ×2 (09:27→17:17)
[2017-09-21] MEDS: Flonase Nasal Inhaler 16gm NASAL SCH (09:28)
[2017-09-21] MEDS: Vitamin B-12 500mcg tab ORAL SCH (09:28)
[2017-09-21] MEDS: Enoxaparin 60mg Inj SUBQ SCH ×2 (09:30→20:47)
[2017-09-21 09:31] LABS: ANION GAP 10 mmol/L (5-15); CALCIUM 8.7 MG/DL (8.5-10.1); CARBON DIOXIDE 22 MMOL/L (21-32); CHLORIDE 110 MMOL/L (98-107); CREATININE 0.8 MG/DL (0.55-1.30); POTASSIUM 3.5 MMOL/L (3.5-5.1); SODIUM 142 MMOL/L (136-145)
[2017-09-21 12:00] VITALS: BP 171/97
--- NOTE | 2017-09-21 13:08 | Cardiology Progress Note ---
Assessment/Plan Assessment/Plan 1. Altered mentation. 2. Dementia. 3. Hypertension. 4. Hyperlipidemia. 5. Peripheral vascular disease. 6. Abnormal cardiac enzymes 7. dvt popliteal trop mildly abn she is quite demented mri neg for acute infarction tele sinus now on full anticoag for dvt with lmwh triple therapy is associated with sig bleeding risks will dc Ecotrin keep on plavix as well as anticoagulation with lmwh d/w dr ang Subjective Cardiovascular: Denies: chest pain, lightheadedness, palpitations Respiratory: Denies: shortness of breath Gastrointestinal/Abdominal: Denies: abdominal pain Genitourinary: Denies: burning Objective Last 24 Hour Vital Signs Date Time Temp Pulse Resp B/P (MAP) Pulse Ox O2 Delivery O2 Flow Rate FiO2 09/21/17 09:28 93 161/81 09/21/17 08:00 101 09/21/17 08:00 97.9 93 18 161/81 100 Room Air 09/21/17 04:28 96.4 70 18 140/82 97 Room Air 09/21/17 04:00 77 09/21/17 00:23 96.8 74 18 138/80 98 Room Air 09/21/17 00:00 76 09/20/17 20:47 97.7 86 20 146/89 99 Room Air 09/20/17 20:00 69 09/20/17 17:38 88 149/93 09/20/17 16:00 75 09/20/17 15:39 98.1 88 18 149/93 100 General Appearance: alert Neck: supple Cardiovascular: normal rate, regular rhythm Respiratory/Chest: lungs clear, normal breath sounds Abdomen: normal bowel sounds, non tender, soft Extremities: no swelling Intake and Output 09/21/17 09/22/17 19:00 07:00 Intake Total 120 ml Balance 120 ml Intake Oral 120 ml Laboratory Tests Test 09/21/17 08:40 White Blood Count 6.6 K/UL (4.8-10.8) Red Blood Count 3.72 M/UL (4.20-5.40) L Hemoglobin 10.5 G/DL (12.0-16.0) L Hematocrit 32.4 % (37.0-47.0) L Mean Corpuscular Volume 87 FL (80-99) Mean Corpuscular Hemoglobin 28.2 PG (27.0-31.0) Mean Corpuscular Hemoglobin Concent 32.4 G/DL (32.0-36.0) Red Cell Distribution Width 13.5 % (11.6-14.8) Platelet Count 191 K/UL (150-450) Mean Platelet Volume 7.4 FL (6.5-10.1) Neutrophils (%) (Auto) 47.5 % (45.0-75.0) Lymphocytes (%) (Auto) 41.3 % (20.0-45.0) Monocytes (%) (Auto) 7.3 % (1.0-10.0) Eosinophils (%) (Auto) 2.7 % (0.0-3.0) Basophils (%) (Auto) 1.2 % (0.0-2.0) Sodium Level 142 MMOL/L (136-145) Potassium Level 3.5 MMOL/L (3.5-5.1) Chloride Level 110 MMOL/L (98-107) H Carbon Dioxide Level 22 MMOL/L (21-32) Anion Gap 10 mmol/L (5-15) Blood Urea Nitrogen 7 mg/dL (7-18) Creatinine 0.8 MG/DL (0.55-1.30) Estimat Glomerular Filtration Rate mL/min (>60) Glucose Level 101 MG/DL (74-106) Calcium Level 8.7 MG/DL (8.5-10.1) Microbiology Date/Time Source Procedure Growth Status 09/18/17 20:10 Blood Blood Culture - Preliminary NO GROWTH AFTER 48 HOURS Resulted 09/18/17 20:00 Blood Blood Culture - Preliminary NO GROWTH AFTER 48 HOURS Resulted DAVID HAAS Sep 21, 2017 13:08
--- NOTE | 2017-09-21 14:20 | General Progress Note ---
Assessment/Plan Assessment/Plan This is an 87-year-old female, admitted with altered mental status and elevated troponin. The patient will be admitted to the telemetry for the following medical problems: 1. Non-ST elevation myocardial infarction with evidence of elevated troponin. We will trend troponins.appreciate Cardiology consult. Continue with aspirin and Plavix. follow up Echocardiogram to rule out any wall motion abnormalities. Stress testing per discussion with coffee break attendant. Currently, the patient denies any chest pain. 2. Altered mental status. Appreciate Neurology consult. 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 Hypertension. Continue the patient's losartan. 4. Diabetes mellitus. The patient is on Humulin insulin 70/30 five units daily and insulin sliding scale will be ordered with ADA diet and soft pureed diet. 5.PAD: vascular consult, continue plavix asa dced by cardiology due to risk for bleed is Full Code. Case will be discussed with the patient's family. 6. Acuter DVT left popliteal: will start Lovenox bid and vascular consult. 7. hypokalemia: improved am labs Subjective Date patient seen: Sep 21, 2017 Allergies: Coded Allergies: AVOCADO (Verified Allergy, Unknown, 09/19/17) All Systems: reviewed and negative except above Objective Last 24 Hour Vital Signs Date Time Temp Pulse Resp B/P (MAP) Pulse Ox O2 Delivery O2 Flow Rate FiO2 09/21/17 09:28 93 161/81 09/21/17 08:00 101 09/21/17 08:00 97.9 93 18 161/81 100 Room Air 09/21/17 04:28 96.4 70 18 140/82 97 Room Air 09/21/17 04:00 77 09/21/17 00:23 96.8 74 18 138/80 98 Room Air 09/21/17 00:00 76 09/20/17 20:47 97.7 86 20 146/89 99 Room Air 09/20/17 20:00 69 09/20/17 17:38 88 149/93 09/20/17 16:00 75 09/20/17 15:39 98.1 88 18 149/93 100 Intake and Output 09/21/17 09/22/17 19:00 07:00 Intake Total 120 ml Balance 120 ml Intake Oral 120 ml Laboratory Tests 09/21/17 08:40: White Blood Count 6.6, Red Blood Count 3.72L, Hemoglobin 10.5L, Hematocrit 32.4L , Mean Corpuscular Volume 87, Mean Corpuscular Hemoglobin 28.2, Mean Corpuscular Hemoglobin Concent 32.4, Red Cell Distribution Width 13.5, Platelet Count 191, Mean Platelet Volume 7.4, Neutrophils (%) (Auto) 47.5, Lymphocytes (% ) (Auto) 41.3, Monocytes (%) (Auto) 7.3, Eosinophils (%) (Auto) 2.7, Basophils ( %) (Auto) 1.2, Sodium Level 142, Potassium Level 3.5, Chloride Level 110H, Carbon Dioxide Level 22, Anion Gap 10, Blood Urea Nitrogen 7, Creatinine 0.8, Estimat Glomerular Filtration Rate , Glucose Level 101, Calcium Level 8.7 Height (Feet): 5 Height (Inches): 4.00 Weight (Pounds): 140 General Appearance: no apparent distress, alert EENT: PERRL/EOMI, pharynx normal Neck: non-tender, supple Cardiovascular: normal rate, regular rhythm, no gallop/murmur, no JVD Respiratory/Chest: chest wall non-tender Abdomen: non tender, soft, no mass Edema: no edema noted Arm (L), no edema noted Arm (R), no edema noted Leg (L), no edema noted Leg (R), 1+ Pedal (L), 1+ Pedal (R) Edema: trace edema 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
[2017-09-21 16:00] VITALS: BP 150/60
[2017-09-21] MEDS: Montelukast 10mg tablet ORAL SCH (16:30)
--- NOTE | 2017-09-21 16:38 | General Progress Note ---
Progress Note Progress Note Dictated consult to follow Asked by Dr Judge to merrick re PAD and left leg DVT Dementia HTN PAD Right leg tibial vein bypass-patent Obesity Arthritis CAD Left popliteal vein DVT on duplex---asymptomatic--no edema no pain Feet warm well perfused no ulcers Rec Anticoagulate for 3 months for DVT and repeat leg duplex in 3 months--- I(VC filter placement if any bleeding or need for invasive procedures) Cards f/u optimization Ok for discharge per vascular point YOVANA ALANIS Sep 21, 2017 16:38
[2017-09-21 20:00] VITALS: BP 157/79
[2017-09-21] MEDS: Atorvastatin 80mg tab ORAL SCH (20:46)
[2017-09-22] VITALS: BP 164/80
[2017-09-22 04:00] VITALS: BP 162/90
[2017-09-22] MEDS: LORazepam Inj 2mg/ml 1ml IV PRN ×2 (06:31→12:41)
[2017-09-22 08:00] VITALS: BP 184/95
[2017-09-22] MEDS: HydrALAZINE 25mg tab ORAL PRN (09:34)
[2017-09-22] MEDS: Flonase Nasal Inhaler 16gm NASAL SCH (10:26)
[2017-09-22] MEDS: Vitamin B-12 500mcg tab ORAL SCH (10:26)
[2017-09-22] MEDS: Docusate 100mg cap ORAL SCH ×2 (10:26→18:39)
[2017-09-22] MEDS: Enoxaparin 60mg Inj SUBQ SCH ×2 (10:28→21:00)
[2017-09-22 12:00] VITALS: BP 159/92
--- NOTE | 2017-09-22 12:06 | Cardiology Progress Note ---
Assessment/Plan Assessment/Plan 1. Altered mentation. 2. Dementia. 3. Hypertension. 4. Hyperlipidemia. 5. Peripheral vascular disease. 6. Abnormal cardiac enzymes 7. dvt popliteal trop mildly abn she is quite demented mri neg for acute infarction tele sinus now on full anticoag for dvt with lmwh triple therapy is associated with sig bleeding risks will dc Ecotrin keep on plavix as well as anticoagulation with lmwh lwo narayanan bb on statin dc plasn per dr ang Subjective ROS Limited/Unobtainable: Yes Cardiovascular: Denies: chest pain Respiratory: Denies: shortness of breath Gastrointestinal/Abdominal: Denies: abdominal pain Genitourinary: Reports: burning Objective Last 24 Hour Vital Signs Date Time Temp Pulse Resp B/P (MAP) Pulse Ox O2 Delivery O2 Flow Rate FiO2 09/22/17 10:29 104 147/76 09/22/17 09:34 184/95 09/22/17 08:00 96.8 118 20 184/95 97 Room Air 09/22/17 05:33 97.1 09/22/17 04:00 97.5 119 20 162/90 Room Air 09/22/17 03:54 116 09/22/17 00:00 97.3 92 20 164/80 100 Room Air 09/21/17 23:45 100 09/21/17 20:00 97.9 20 157/79 20 Room Air 09/21/17 19:52 87 09/21/17 17:17 90 150/60 09/21/17 16:00 150/60 09/21/17 16:00 90 General Appearance: no apparent distress, alert Neck: supple Cardiovascular: normal rate, regular rhythm Respiratory/Chest: lungs clear Abdomen: non tender, soft, no organomegaly Extremities: no swelling Intake and Output 09/22/17 09/23/17 19:00 07:00 # Voids 1 WALDODAVID Sep 22, 2017 12:06
[2017-09-22] MEDS: Metoprolol Succinate XL 25mg tab ORAL SCH (12:52)
--- NOTE | 2017-09-22 13:17 | Cardiology Report ---
APPROVED REPORT EXAM: Two-dimensional and M-mode echocardiogram with Doppler and color Doppler. INDICATION Shortness of breath M-Mode DIMENSIONS Left Atrium (MM)2.9 (1.6-4.0cm) Aortic Root2.6 (2.0-3.7cm) Aortic Cusp Exc.1.4 (1.5-2.0cm) Technically difficult study due to patient resistance. M-mode measurements of left ventricle not obtainable due to cardiac position (angle) Normal left ventricular chamber size, systolic function and wall motion. Left ventricular ejection fraction estimated to be 60-65 %. Moderate left ventricular hypertrophy. All other cardiac chamber size are within normal. Focal aortic valve sclerosis with adequate cusp excursion. Thickened mitral valve leaflets with normal excursion. Mitral annulus and aortic root calcification. Pulmonic valve not well visualized. Normal tricuspid valve structure. IVC at normal size with sligh physiologic collapse . A color flow and spectral Doppler study was performed and revealed: No aortic regurgitation. Trace mitral regurgitation. Mitral diastolic velocities suggest reduced left ventricular relaxation c/w mild LV diastolic dysfunction (Grade I ) Trace tricuspid regurgitation. Tricuspid systolic velocities suggests peak right ventricular systolic pressure of 33 mmHg No Pulmonic regurgitation present.
--- NOTE | 2017-09-22 14:39 | Cardiology Report ---
APPROVED REPORT EKG Measurement Heart [id number] CT [id number] Normal sinus rhythm with sinus arrhythmia Possible Anterior infarct, age undetermined Abnormal ECG
--- NOTE | 2017-09-22 15:00 | General Progress Note ---
Assessment/Plan Assessment/Plan This is an 87-year-old female, admitted with altered mental status and elevated troponin. The patient will be admitted to the telemetry for the following medical problems: 1. Non-ST elevation myocardial infarction with evidence of elevated troponin. We will trend troponins.appreciate Cardiology consult. Continue with aspirin and Plavix. follow up Echocardiogram to rule out any wall motion abnormalities. Stress testing per discussion with civil engineering director. Currently, the patient denies any chest pain. 2. Altered mental status. Appreciate Neurology consult. 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 Hypertension. Continue the patient's losartan. 4. Diabetes mellitus. The patient is on Humulin insulin 70/30 five units daily and insulin sliding scale will be ordered with ADA diet and soft pureed diet. 5.PAD: vascular consult, continue plavix asa dced by cardiology due to risk for bleed is Full Code. Case will be discussed with the patient's family. 6. Acuter DVT left popliteal: will start Lovenox bid to bridge coumadin anticoagulation for 3 months, repeat us at that time 7. hypokalemia: improved 8. Altered mental status: will order urinalysis and urine culture psych consult discussed with Dr. Siddiqui and Dr. Childs Subjective Date patient seen: Sep 22, 2017 ROS Limited/Unobtainable: Yes Allergies: Coded Allergies: AVOCADO (Verified Allergy, Unknown, 09/19/17) Subjective patient is agitated and confused since this am attempting to get out of bed Objective Last 24 Hour Vital Signs Date Time Temp Pulse Resp B/P (MAP) Pulse Ox O2 Delivery O2 Flow Rate FiO2 09/22/17 12:52 111 159/92 09/22/17 12:00 107 09/22/17 12:00 96.3 111 18 159/92 98 Room Air 09/22/17 10:29 104 147/76 09/22/17 09:34 184/95 09/22/17 08:00 123 09/22/17 08:00 96.8 118 20 184/95 97 Room Air 09/22/17 05:33 97.1 09/22/17 04:00 97.5 119 20 162/90 Room Air 09/22/17 03:54 116 09/22/17 00:00 97.3 92 20 164/80 100 Room Air 09/21/17 23:45 100 09/21/17 20:00 97.9 20 157/79 20 Room Air 09/21/17 19:52 87 09/21/17 17:17 90 150/60 09/21/17 16:00 150/60 09/21/17 16:00 90 Intake and Output 09/22/17 09/23/17 19:00 07:00 Intake Total 120 ml Balance 120 ml Intake Oral 120 ml # Voids 2 Height (Feet): 5 Height (Inches): 4.00 Weight (Pounds): 140 General Appearance: no apparent distress, alert, lethargic, confused EENT: PERRL/EOMI, pharynx normal Neck: non-tender, supple Cardiovascular: normal rate, regular rhythm, no gallop/murmur, no JVD Respiratory/Chest: chest wall non-tender, normal breath sounds, no respiratory distress Abdomen: non tender, soft, no mass Extremities: non-tender, normal inspection, no calf tenderness Edema: no edema noted Arm (L), no edema noted Arm (R), no edema noted Leg (L), no edema noted Leg (R), 1+ Pedal (L), 1+ Pedal (R), no edema noted Generalized Edema: mild edema 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
[2017-09-22 15:01] LABS: BASOPHILS % (AUTO) 1.4 % (0.0-2.0); EOSINOPHILS % (AUTO) 2.1 % (0.0-3.0); LYMPHOCYTES % (AUTO) 33.5 % (20.0-45.0); MEAN CORPUSCULAR HEMOGLOBIN 27.8 PG (27.0-31.0); MEAN CORPUSCULAR HGB CONC 32.2 G/DL (32.0-36.0); MEAN CORPUSCULAR VOLUME 86 FL (80-99); MEAN PLATELET VOLUME 7.1 FL (6.5-10.1); PLATELET COUNT 170 K/UL (150-450); RED BLOOD COUNT 3.49 M/UL (4.20-5.40); RED CELL DISTRIBUTION WIDTH 13.5 % (11.6-14.8); WHITE BLOOD COUNT 7.8 K/UL (4.8-10.8)
[2017-09-22 15:19] LABS: ANION GAP 10 mmol/L (5-15); CALCIUM 8.7 MG/DL (8.5-10.1); CARBON DIOXIDE 24 MMOL/L (21-32); CHLORIDE 110 MMOL/L (98-107); CREATININE 0.8 MG/DL (0.55-1.30); SODIUM 143 MMOL/L (136-145)
[2017-09-22 16:00] VITALS: BP 114/62
[2017-09-22] MEDS: Montelukast 10mg tablet ORAL SCH (16:51)
[2017-09-22] MEDS ORDERED: Warfarin Sodium 2.5mg ORAL SCH (17:00)
[2017-09-22] MEDS ORDERED: NS 500ML ONE (17:28)
[2017-09-22 20:21] VITALS: BP 142/73
[2017-09-22] MEDS: Atorvastatin 80mg tab ORAL SCH (21:00)
--- NOTE | 2017-09-22 23:10 | Consultation ---
History of Present Illness General Date patient seen: Sep 21, 2017 Chief Complaint: Altered Level of Consciousness Present Illness HPI 87-year-old female with history of hypertension, diabetes, and chronic kidney disease, who was recently discharged from [facility] [place] in [place] for possible UTI. the pt has episodes of agitation and is confused. she has cognitive impairment and is unable to be engaged Allergies: Coded Allergies: AVOCADO (Verified Allergy, Unknown, 09/19/17) Medication History Miscellaneous Medications Insulin Lispro (Humalog), Unknown Dose SUBQ, (Reported) Patient History Limited by: medical condition History Provided By: Patient, Medical Record, PMD Healthcare decision maker Resuscitation status Full Code Advanced Directive on File Past Medical/Surgical History Past Medical/Surgical History: (1) Altered mental status (2) Altered level of consciousness (3) NSTEMI (non-ST elevated myocardial infarction) (4) Paraparesis of both lower limbs (5) Cognitive loss, probably vascular dementia Review of Systems Psychiatric: Reports: prior hx, anxiety, depressed feelings Physical Exam General Appearance: WD/WN, no apparent distress, confused, agitated Last 24 Hour Vital Signs Date Time Temp Pulse Resp B/P (MAP) Pulse Ox O2 Delivery O2 Flow Rate FiO2 09/22/17 20:21 97.7 72 20 142/73 100 Room Air 09/22/17 20:00 65 09/22/17 18:40 75 144/75 09/22/17 16:00 73 09/22/17 16:00 96.8 75 18 114/62 96 Room Air 09/22/17 12:52 111 159/92 09/22/17 12:00 107 09/22/17 12:00 96.3 111 18 159/92 98 Room Air 09/22/17 10:29 104 147/76 09/22/17 09:34 184/95 09/22/17 08:00 123 09/22/17 08:00 96.8 118 20 184/95 97 Room Air 09/22/17 05:33 97.1 09/22/17 04:00 97.5 119 20 162/90 Room Air 09/22/17 03:54 116 09/22/17 00:00 97.3 92 20 164/80 100 Room Air 09/21/17 23:45 100 Intake and Output 09/22/17 09/23/17 19:00 07:00 Intake Total 195 ml Balance 195 ml Intake Oral 195 ml # Voids 3 Laboratory Tests Test 09/22/17 14:30 White Blood Count 7.8 K/UL (4.8-10.8) Red Blood Count 3.49 M/UL (4.20-5.40) L Hemoglobin 9.7 G/DL (12.0-16.0) L Hematocrit 30.2 % (37.0-47.0) L Mean Corpuscular Volume 86 FL (80-99) Mean Corpuscular Hemoglobin 27.8 PG (27.0-31.0) Mean Corpuscular Hemoglobin Concent 32.2 G/DL (32.0-36.0) Red Cell Distribution Width 13.5 % (11.6-14.8) Platelet Count 170 K/UL (150-450) Mean Platelet Volume 7.1 FL (6.5-10.1) Neutrophils (%) (Auto) 55.0 % (45.0-75.0) Lymphocytes (%) (Auto) 33.5 % (20.0-45.0) Monocytes (%) (Auto) 8.0 % (1.0-10.0) Eosinophils (%) (Auto) 2.1 % (0.0-3.0) Basophils (%) (Auto) 1.4 % (0.0-2.0) Sodium Level 143 MMOL/L (136-145) Potassium Level 3.0 MMOL/L (3.5-5.1) L Chloride Level 110 MMOL/L (98-107) H Carbon Dioxide Level 24 MMOL/L (21-32) Anion Gap 10 mmol/L (5-15) Blood Urea Nitrogen 9 mg/dL (7-18) Creatinine 0.8 MG/DL (0.55-1.30) Estimat Glomerular Filtration Rate mL/min (>60) Glucose Level 104 MG/DL (74-106) Calcium Level 8.7 MG/DL (8.5-10.1) Height (Feet): 5 Height (Inches): 4.00 Weight (Pounds): 140 Medications Current Medications Medications (Trade) Dose Ordered Sig/Eric Route PRN Reason Start Time Stop Time Status Last Admin Dose Admin Acetaminophen (Tylenol) 650 mg Q6H PRN ORAL Mild Pain/Temp > 100.5 09/19/17 00:30 1/13/18 00:29 09/22/17 04:34 Amlodipine Besylate (Norvasc) 5 mg BID ORAL 09/19/17 09:00 10/19/17 08:59 09/22/17 18:40 Atorvastatin Calcium (Lipitor) 80 mg BEDTIME ORAL 09/19/17 21:00 10/19/17 20:59 09/22/17 21:00 Clopidogrel Bisulfate (Plavix) 75 mg DAILY ORAL 09/19/17 09:00 10/19/17 08:59 09/22/17 10:26 Cyanocobalamin (Vitamin B-12) 1,000 mcg DAILY ORAL 09/19/17 09:00 10/19/17 08:59 09/22/17 10:26 Dextrose (Dextrose 50%) STAT PRN IV Hypoglycemia 09/19/17 00:30 10/19/17 00:29 Docusate Sodium (Colace) 100 mg TWICE A DAY ORAL 09/19/17 09:00 10/19/17 08:59 09/22/17 18:39 Enoxaparin Sodium (Lovenox) 60 mg Q12HR SUBQ 09/20/17 18:00 10/20/17 17:59 09/22/17 21:00 Fluticasone Propionate (Flonase) 1 spray DAILY NASAL 09/19/17 09:00 10/19/17 08:59 09/22/17 10:26 Folic Acid (Folate) 1 mg DAILY ORAL 09/19/17 09:00 10/19/17 08:59 09/22/17 10:26 Hydralazine HCl (Apresoline) 25 mg Q6HR PRN ORAL For High Blood Pressure 09/19/17 00:30 10/19/17 00:29 09/22/17 09:34 Insulin Aspart (NovoLOG Mix 70/ 30) 5 units NOVOLOGBS SUBQ 09/19/17 06:30 10/19/17 06:29 09/22/17 06:36 Lorazepam (Ativan 2mg/ml 1ml) 0.5 mg Q8HR PRN IV For Anxiety 09/22/17 06:15 09/29/17 06:14 09/22/17 12:41 Metoprolol Succinate (Toprol XL) 25 mg DAILY ORAL 09/22/17 13:00 10/22/17 12:59 09/22/17 12:52 Montelukast Sodium (Singulair) 10 mg QPM ORAL 09/19/17 16:30 10/19/17 16:29 09/22/17 16:51 Multivitamins (Multivitamins) 1 tab DAILY ORAL 09/19/17 09:00 10/19/17 08:59 09/22/17 10:25 Warfarin Sodium (Coumadin per pharmacy) 1 ea DAILY PRN MISC Per rx protocol 09/22/17 15:00 10/22/17 14:59 Assessment/Plan Status: unchanged Assessment/Plan encephalopathy agitation -risperdal 1mg po qhs -risperdal 1mg q 6hr prn -dc Delia Troy M.D. Sep 22, 2017 23:10
[2017-09-23 00:33] VITALS: BP 159/70
[2017-09-23 04:07] VITALS: BP 150/70
[2017-09-23 08:00] VITALS: BP 167/69
[2017-09-23 09:12] LABS: INR 1.1 (0.9-1.1); PROTHROMBIN TIME 11.8 SEC (9.30-11.50)
[2017-09-23] MEDS: Docusate 100mg cap ORAL SCH ×2 (09:12→09:36)
[2017-09-23] MEDS: Metoprolol Succinate XL 25mg tab ORAL SCH ×2 (09:20→09:35)
[2017-09-23] MEDS: Enoxaparin 60mg Inj SUBQ SCH ×2 (09:24→09:43)
[2017-09-23] MEDS: Flonase Nasal Inhaler 16gm NASAL SCH (09:35)
[2017-09-23] MEDS: Vitamin B-12 500mcg tab ORAL SCH (09:36)
[2017-09-23 16:00] VITALS: BP 133/66
--- NOTE | 2017-09-23 16:38 | General Progress Note ---
Carly Guan HEALTH SYSTEMS ANALYST 09/23/17 1638: Assessment/Plan Assessment/Plan This is an 87-year-old female, admitted with altered mental status/ encephalopathy and elevated troponin. The patient will be admitted to telemetry for the following medical problems: 1. Non-ST elevation myocardial infarction with evidence of elevated troponin. We will trend troponins.appreciate Cardiology consult. Continue with Plavix. Aspirin was discontinued by Cardiology. Currently, the patient denies any chest pain. 2. Altered mental status/ Acute encephalopathy. Appreciate Neurology consult. probable vascular dementia -follow-up urine culture, if negative may DC gene 3. Hypertension. Continue the patient's losartan. 4. Diabetes mellitus. The patient is on Humulin insulin 70/30 five units daily and insulin sliding scale will be ordered with ADA diet and soft pureed diet. 5.PAD: vascular consult, continue plavix; asa dced by cardiology due to risk for bleed is Full Code. Case will be discussed with the patient's family. 6. Acuter DVT left popliteal: will start Lovenox bid to bridge coumadin anticoagulation for 3 months, repeat us at that time - INR today 1.1-- for Coumadin 4 mg today - ff-up INR tomorrow 7. hypokalemia: improved 8. Altered mental status: will order urinalysis and urine culture-- follow-up culture psych consult appreciated DC planning SNF vs Home health Left VM bharti [facility] [phone]-- to coordinate with DC program planner re where patient will be discharged if urine culture ok, and patient mental status stable, may be able to DC by tomorrow above findings discusssed with Dr Judge Subjective Date patient seen: Sep 23, 2017 Time patient seen: 16:29 Allergies: Coded Allergies: AVOCADO (Verified Allergy, Unknown, 09/19/17) Subjective patient awakened from sleep, confused, thinks she is in a rehab place, doesn't know the year' Objective Last 24 Hour Vital Signs Date Time Temp Pulse Resp B/P (MAP) Pulse Ox O2 Delivery O2 Flow Rate FiO2 09/23/17 12:00 79 09/23/17 09:36 82 167/69 09/23/17 09:35 82 167/69 09/23/17 08:00 97.9 82 21 167/69 99 09/23/17 08:00 97.9 82 21 167/69 99 09/23/17 08:00 64 09/23/17 04:07 97.0 74 21 150/70 97 Room Air 09/23/17 04:00 67 09/23/17 00:33 97.0 78 22 159/70 100 Room Air 09/23/17 00:00 81 09/22/17 20:21 97.7 72 20 142/73 100 Room Air 09/22/17 20:00 65 09/22/17 18:40 75 144/75 Laboratory Tests 09/23/17 08:20: Prothrombin Time 11.8H, Prothromb Time International Ratio 1.1 Height (Feet): 5 Height (Inches): 4.00 Weight (Pounds): 140 General Appearance: confused, obese EENT: normal ENT inspection Neck: supple Cardiovascular: normal rate, regular rhythm Respiratory/Chest: lungs clear Abdomen: normal bowel sounds, non tender, soft Extremities: calf tenderness Neurologic: alert, responsive Skin: warm/dry Gerald Judge MD 09/23/172034: Assessment/Plan Assessment/Plan The patient was seen and examined at bedside and all new and available data was reviewed in the patients chart. I agree with the above findings, impression and plan. (Patient seen earlier today. Signature stamp does not reflect patient encounter time.). -Gerald Judge MD Subjective Allergies: Coded Allergies: AVOCADO (Verified Allergy, Unknown, 09/19/17) Carly Guan NP Sep 23, 2017 16:38 Gerald Judge MD Sep 23, 2017 20:35
[2017-09-23] MEDS ORDERED: Warfarin Sodium 4mg PO ONE (17:00)
[2017-09-23] MEDS: Montelukast 10mg tablet ORAL SCH (17:54)
[2017-09-23 20:00] VITALS: BP 153/68
[2017-09-23] MEDS: Atorvastatin 80mg tab ORAL SCH (21:03)
--- NOTE | 2017-09-23 22:38 | General Progress Note ---
Assessment/Plan Status: progressing Assessment/Plan encephalopathy risperdal 1mg qhs Subjective Date patient seen: Sep 23, 2017 Neurologic/Psychiatric: Reports: anxiety, depressed Allergies: Coded Allergies: AVOCADO (Verified Allergy, Unknown, 09/19/17) Subjective the pt is confused however less agitated Objective Last 24 Hour Vital Signs Date Time Temp Pulse Resp B/P (MAP) Pulse Ox O2 Delivery O2 Flow Rate FiO2 09/23/17 16:00 64 09/23/17 16:00 97.6 66 21 133/66 99 09/23/17 12:00 79 09/23/17 09:36 82 167/69 09/23/17 09:35 82 167/69 09/23/17 08:00 97.9 82 21 167/69 99 09/23/17 08:00 97.9 82 21 167/69 99 09/23/17 08:00 64 09/23/17 04:07 97.0 74 21 150/70 97 Room Air 09/23/17 04:00 67 09/23/17 00:33 97.0 78 22 159/70 100 Room Air 09/23/17 00:00 81 Intake and Output 09/23/17 09/24/17 19:00 07:00 # Bowel Movements 1 Laboratory Tests 09/23/17 08:20: Prothrombin Time 11.8H, Prothromb Time International Ratio 1.1 Height (Feet): 5 Height (Inches): 4.00 Weight (Pounds): 140 General Appearance: WD/WN, no apparent distress, alert, confused, agitated Delia Freedman M.D. Sep 23, 2017 22:38
[2017-09-24] VITALS (7 sets, daily range): BP systolic 126–160; BP diastolic 55–99
[2017-09-24] MEDS: HydrALAZINE 25mg tab ORAL PRN (05:15)
[2017-09-24] MEDS: Docusate 100mg cap ORAL SCH ×2 (08:59→17:03)
[2017-09-24] MEDS: Vitamin B-12 500mcg tab ORAL SCH (08:59)
[2017-09-24] MEDS: Flonase Nasal Inhaler 16gm NASAL SCH (08:59)
[2017-09-24] MEDS: Enoxaparin 60mg Inj SUBQ SCH ×2 (09:01→21:07)
[2017-09-24 09:23] LABS: EOSINOPHILS % (AUTO) 2.1 % (0.0-3.0); LYMPHOCYTES % (AUTO) 29.9 % (20.0-45.0); MEAN CORPUSCULAR HEMOGLOBIN 27.7 PG (27.0-31.0); MEAN CORPUSCULAR HGB CONC 32.2 G/DL (32.0-36.0); MEAN CORPUSCULAR VOLUME 86 FL (80-99); MEAN PLATELET VOLUME 7.5 FL (6.5-10.1); MONOCYTES % (AUTO) 7.9 % (1.0-10.0); PLATELET COUNT 182 K/UL (150-450); RED BLOOD COUNT 3.48 M/UL (4.20-5.40); RED CELL DISTRIBUTION WIDTH 13.1 % (11.6-14.8); WHITE BLOOD COUNT 7.9 K/UL (4.8-10.8)
[2017-09-24 09:27] LABS: INR 1.1 (0.9-1.1); PROTHROMBIN TIME 11.2 SEC (9.30-11.50)
[2017-09-24 09:31] LABS: ANION GAP 8 mmol/L (5-15); CALCIUM 8.3 MG/DL (8.5-10.1); CARBON DIOXIDE 25 MMOL/L (21-32); CHLORIDE 110 MMOL/L (98-107); CREATININE 0.9 MG/DL (0.55-1.30); POTASSIUM 2.8 MMOL/L (3.5-5.1); SODIUM 142 MMOL/L (136-145)
--- NOTE | 2017-09-24 09:55 | Cardiology Progress Note ---
Assessment/Plan Assessment/Plan 1. Altered mentation. 2. Dementia. 3. Hypertension. 4. Hyperlipidemia. 5. Peripheral vascular disease. 6. Abnormal cardiac enzymes 7. dvt popliteal trop mildly abn she is quite demented mri neg for acute infarction tele sinus now on full anticoag for dvt with coumadin triple therapy is associated with sig bleeding risks will dc Ecotrin keep on plavix as well as anticoagulation with lmwh to coumadin inr 1.1n 09/24 low dose bb on statin dc plasn per dr ang Subjective Cardiovascular: Denies: chest pain, lightheadedness, palpitations Respiratory: Denies: shortness of breath Genitourinary: Denies: burning Objective Last 24 Hour Vital Signs Date Time Temp Pulse Resp B/P (MAP) Pulse Ox O2 Delivery O2 Flow Rate FiO2 09/24/17 08:58 85 151/76 09/24/17 08:00 97.3 85 18 151/76 100 Room Air 09/24/17 06:32 133/67 09/24/17 05:15 172/80 09/24/17 04:00 73 09/24/17 04:00 98.1 72 24 128/85 97 Room Air 09/24/17 00:00 97.7 76 18 160/96 100 Room Air 09/24/17 00:00 62 09/23/17 20:00 61 09/23/17 20:00 97.3 66 20 153/68 98 Room Air 09/23/17 16:00 64 09/23/17 16:00 97.6 66 21 133/66 99 09/23/17 12:00 79 General Appearance: no apparent distress, alert Neck: supple Cardiovascular: normal rate, regular rhythm Respiratory/Chest: lungs clear, normal breath sounds Abdomen: normal bowel sounds, non tender, soft Extremities: no swelling Laboratory Tests Test 09/24/17 09:05 White Blood Count 7.9 K/UL (4.8-10.8) Red Blood Count 3.48 M/UL (4.20-5.40) L Hemoglobin 9.6 G/DL (12.0-16.0) L Hematocrit 29.9 % (37.0-47.0) L Mean Corpuscular Volume 86 FL (80-99) Mean Corpuscular Hemoglobin 27.7 PG (27.0-31.0) Mean Corpuscular Hemoglobin Concent 32.2 G/DL (32.0-36.0) Red Cell Distribution Width 13.1 % (11.6-14.8) Platelet Count 182 K/UL (150-450) Mean Platelet Volume 7.5 FL (6.5-10.1) Neutrophils (%) (Auto) 59.0 % (45.0-75.0) Lymphocytes (%) (Auto) 29.9 % (20.0-45.0) Monocytes (%) (Auto) 7.9 % (1.0-10.0) Eosinophils (%) (Auto) 2.1 % (0.0-3.0) Basophils (%) (Auto) 1.0 % (0.0-2.0) Prothrombin Time 11.2 SEC (9.30-11.50) Prothromb Time International Ratio 1.1 (0.9-1.1) Sodium Level 142 MMOL/L (136-145) Potassium Level 2.8 MMOL/L (3.5-5.1) L Chloride Level 110 MMOL/L (98-107) H Carbon Dioxide Level 25 MMOL/L (21-32) Anion Gap 8 mmol/L (5-15) Blood Urea Nitrogen 12 mg/dL (7-18) Creatinine 0.9 MG/DL (0.55-1.30) Estimat Glomerular Filtration Rate mL/min (>60) Glucose Level 134 MG/DL (74-106) H Calcium Level 8.3 MG/DL (8.5-10.1) DAVID LINDER Sep 24, 2017 09:55
[2017-09-24] MEDS ORDERED: Warfarin Sodium 5mg ORAL ONE (17:00)
[2017-09-24] MEDS: Montelukast 10mg tablet ORAL SCH (17:03)
[2017-09-24] MEDS: Atorvastatin 80mg tab ORAL SCH ×2 (19:30→20:59)
--- NOTE | 2017-09-24 20:11 | General Progress Note ---
Assessment/Plan Status: progressing Assessment/Plan This is an 87-year-old female, admitted with altered mental status/ encephalopathy and elevated troponin. The patient will be admitted to telemetry for the following medical problems: 1. Non-ST elevation myocardial infarction with evidence of elevated troponin. We will trend troponins.appreciate Cardiology consult. Continue with Plavix. Aspirin was discontinued by Cardiology. Currently, the patient denies any chest pain. 2. Altered mental status/ Acute encephalopathy. Appreciate Neurology consult. probable vascular dementia -follow-up urine culture, if negative may DC gene 3. Hypertension. Continue the patient's losartan. 4. Diabetes mellitus. The patient is on Humulin insulin 70/30 five units daily and insulin sliding scale will be ordered with ADA diet and soft pureed diet. 5.PAD: vascular consult, continue plavix; asa dced by cardiology due to risk for bleed is Full Code. Case will be discussed with the patient's family. 6. Acuter DVT left popliteal: will start Lovenox bid to bridge coumadin anticoagulation for 3 months, repeat us at that time - INR today 1.1-- for Coumadin 4 mg today - ff-up INR tomorrow 7. hypokalemia: improved, am bmp 8. Altered mental status: will order urinalysis and urine culture-- follow-up culture psych consult appreciated, Respirdol 1 mg hs for delirium DC planning SNF vs Home health Left VM to daughter Maryjane [phone]-- to coordinate with DC cyber ops planner re where patient will be discharged if urine culture ok, and patient mental status stable Subjective Date patient seen: Sep 24, 2017 ROS Limited/Unobtainable: Yes Allergies: Coded Allergies: AVOCADO (Verified Allergy, Unknown, 09/19/17) Subjective patient is agitated and confused since this am attempting to get out of bed Objective Last 24 Hour Vital Signs Date Time Temp Pulse Resp B/P (MAP) Pulse Ox O2 Delivery O2 Flow Rate FiO2 09/24/17 17:03 78 135/60 09/24/17 16:00 68 09/24/17 16:00 97.5 78 18 135/60 99 Room Air 09/24/17 12:00 77 09/24/17 12:00 98.4 76 18 126/55 94 Room Air 09/24/17 10:02 97.3 12/19/17 08:58 85 151/76 09/24/17 08:00 97.3 85 18 151/76 100 Room Air 09/24/17 08:00 86 09/24/17 06:32 133/67 09/24/17 05:15 172/80 09/24/17 04:00 73 09/24/17 04:00 98.1 72 24 128/85 97 Room Air 09/24/17 00:00 97.7 76 18 160/96 100 Room Air 09/24/17 00:00 62 Intake and Output 09/24/17 09/25/17 19:00 07:00 Intake Total 360 ml Balance 360 ml Intake Oral 360 ml # Voids 2 Laboratory Tests 09/24/17 09:05: White Blood Count 7.9, Red Blood Count 3.48L, Hemoglobin 9.6L, Hematocrit 29.9L , Mean Corpuscular Volume 86, Mean Corpuscular Hemoglobin 27.7, Mean Corpuscular Hemoglobin Concent 32.2, Red Cell Distribution Width 13.1, Platelet Count 182, Mean Platelet Volume 7.5, Neutrophils (%) (Auto) 59.0, Lymphocytes (% ) (Auto) 29.9, Monocytes (%) (Auto) 7.9, Eosinophils (%) (Auto) 2.1, Basophils ( %) (Auto) 1.0, Prothrombin Time 11.2, Prothromb Time International Ratio 1.1, Sodium Level 142, Potassium Level 2.8L, Chloride Level 110H, Carbon Dioxide Level 25, Anion Gap 8, Blood Urea Nitrogen 12, Creatinine 0.9, Estimat Glomerular Filtration Rate , Glucose Level 134H, Calcium Level 8.3L, Phosphorus Level 3.6 Height (Feet): 5 Height (Inches): 4.00 Weight (Pounds): 140 General Appearance: WD/WN EENT: PERRL/EOMI Neck: non-tender, supple Cardiovascular: normal rate, regular rhythm, no gallop/murmur, no JVD Abdomen: normal bowel sounds Extremities: non-tender, normal inspection, no calf tenderness Edema: no edema noted Arm (L), no edema noted Arm (R), no edema noted Leg (L), no edema noted Leg (R), no edema noted Pedal (L), no edema noted Pedal (R), no edema noted Generalized Neurologic: wireless watcher II-XII grossly normal, oriented x 3, responsive Skin: warm/dry Lymphatic: normal anterior cervical (L), normal anterior cervical (R), normal posterior cervical (L), normal posterior cervical (R), normal submandibular (L) , normal submandibular (R), normal supraclavicular (L), normal supraclavicular ( R), normal axillary (L), normal axillary (R), normal inguinal (L), normal inguinal (R), normal other Gerald Judge MD Sep 24, 2017 20:11
--- NOTE | 2017-09-24 23:15 | General Progress Note ---
Assessment/Plan Assessment/Plan encephalopathy risperdal 1mg qhs Subjective Date patient seen: Sep 24, 2017 Allergies: Coded Allergies: AVOCADO (Verified Allergy, Unknown, 09/19/17) Subjective the pt is confused however less agitated Objective Last 24 Hour Vital Signs Date Time Temp Pulse Resp B/P (MAP) Pulse Ox O2 Delivery O2 Flow Rate FiO2 09/24/17 20:00 97.1 60 20 160/99 Room Air 09/24/17 20:00 72 09/24/17 17:03 78 135/60 09/24/17 16:00 68 09/24/17 16:00 97.5 78 18 135/60 99 Room Air 09/24/17 12:00 77 09/24/17 12:00 98.4 76 18 126/55 94 Room Air 09/24/17 10:02 97.3 09/24/17 08:58 85 151/76 09/24/17 08:00 97.3 85 18 151/76 100 Room Air 09/24/17 08:00 86 09/24/17 06:32 133/67 09/24/17 05:15 172/80 09/24/17 04:00 73 09/24/17 04:00 98.1 72 24 128/85 97 Room Air 09/24/17 00:00 97.7 76 18 160/96 100 Room Air 09/24/17 00:00 62 Intake and Output 09/24/17 09/25/17 19:00 07:00 Intake Total 360 ml Balance 360 ml Intake Oral 360 ml # Voids 2 Laboratory Tests 09/24/17 09:05: White Blood Count 7.9, Red Blood Count 3.48L, Hemoglobin 9.6L, Hematocrit 29.9L , Mean Corpuscular Volume 86, Mean Corpuscular Hemoglobin 27.7, Mean Corpuscular Hemoglobin Concent 32.2, Red Cell Distribution Width 13.1, Platelet Count 182, Mean Platelet Volume 7.5, Neutrophils (%) (Auto) 59.0, Lymphocytes (% ) (Auto) 29.9, Monocytes (%) (Auto) 7.9, Eosinophils (%) (Auto) 2.1, Basophils ( %) (Auto) 1.0, Prothrombin Time 11.2, Prothromb Time International Ratio 1.1, Sodium Level 142, Potassium Level 2.8L, Chloride Level 110H, Carbon Dioxide Level 25, Anion Gap 8, Blood Urea Nitrogen 12, Creatinine 0.9, Estimat Glomerular Filtration Rate , Glucose Level 134H, Calcium Level 8.3L, Phosphorus Level 3.6 Height (Feet): 5 Height (Inches): 4.00 Weight (Pounds): 140 Delia Freedman M.D. Sep 24, 2017 23:15
[2017-09-25] VITALS (8 sets, daily range): BP systolic 127–174; BP diastolic 74–85
[2017-09-25] MEDS: HydrALAZINE 25mg tab ORAL PRN (05:40)
[2017-09-25 06:41] LABS: BASOPHILS % (AUTO) 1.2 % (0.0-2.0); EOSINOPHILS % (AUTO) 3.2 % (0.0-3.0); LYMPHOCYTES % (AUTO) 35.1 % (20.0-45.0); MEAN CORPUSCULAR HEMOGLOBIN 28.4 PG (27.0-31.0); MEAN CORPUSCULAR HGB CONC 32.4 G/DL (32.0-36.0); MEAN CORPUSCULAR VOLUME 88 FL (80-99); MEAN PLATELET VOLUME 7.5 FL (6.5-10.1); MONOCYTES % (AUTO) 6.7 % (1.0-10.0); NEUTROPHILS % (AUTO) 53.8 % (45.0-75.0); PLATELET COUNT 187 K/UL (150-450); RED BLOOD COUNT 3.57 M/UL (4.20-5.40); RED CELL DISTRIBUTION WIDTH 13.7 % (11.6-14.8); WHITE BLOOD COUNT 8.1 K/UL (4.8-10.8)
[2017-09-25 06:45] LABS: INR 1.1 (0.9-1.1); PROTHROMBIN TIME 11.1 SEC (9.30-11.50)
[2017-09-25 07:00] LABS: ANION GAP 10 mmol/L (5-15); CALCIUM 8.9 MG/DL (8.5-10.1); CARBON DIOXIDE 24 MMOL/L (21-32); CHLORIDE 107 MMOL/L (98-107); CREATININE 0.9 MG/DL (0.55-1.30); POTASSIUM 3.5 MMOL/L (3.5-5.1); SODIUM 141 MMOL/L (136-145)
[2017-09-25] MEDS: Docusate 100mg cap ORAL SCH ×2 (11:30→17:53)
[2017-09-25] MEDS: Metoprolol Succinate XL 25mg tab ORAL SCH (11:30)
[2017-09-25] MEDS: Vitamin B-12 500mcg tab ORAL SCH (11:31)
[2017-09-25] MEDS: Flonase Nasal Inhaler 16gm NASAL SCH (11:32)
[2017-09-25] MEDS: Enoxaparin 60mg Inj SUBQ SCH ×2 (11:32→20:32)
[2017-09-25 14:55] LABS: APPEARANCE,URINE CLEAR; KETONES,URINE 1+ (NEGATIVE); LEUKOCYTE ESTERASE ,URINE 2+ (NEGATIVE); NITRITE,URINE NEGATIVE (NEGATIVE); PH,URINE 5 (4.5-8.0); PROTEIN,URINE 3+ (NEGATIVE); UROBILINOGEN,URINE NORMAL MG/DL (0.0-1.0)
[2017-09-25 15:01] LABS: BACTERIA,URINE FEW /HPF; SQUAMOUS EPITHELIAL CELL,UR FEW /LPF (NONE/OCC)
[2017-09-25] MEDS ORDERED: Warfarin Sodium 3mg ORAL ONE (17:00)
[2017-09-25] MEDS: Montelukast 10mg tablet ORAL SCH (17:52)
--- NOTE | 2017-09-25 18:23 | Cardiology Progress Note ---
Assessment/Plan Assessment/Plan 1. Altered mentation. 2. Dementia. 3. Hypertension. 4. Hyperlipidemia. 5. Peripheral vascular disease. 6. Abnormal cardiac enzymes 7. dvt popliteal 8. short vt trop mildly abn she is quite demented mri neg for acute infarction tele sinus short svt noted today now on full anticoag for dvt with coumadin triple therapy is associated with sig bleeding risks will dc Ecotrin keep on plavix as well as anticoagulation with lmwh to coumadin inr 1.1n 09/24 low dose bb increase dose on statin dc plasn per dr ang Subjective ROS Limited/Unobtainable: Yes Objective Last 24 Hour Vital Signs Date Time Temp Pulse Resp B/P (MAP) Pulse Ox O2 Delivery O2 Flow Rate FiO2 09/25/17 17:53 87 153/83 09/25/17 15:30 97.2 92 20 127/85 100 Room Air 09/25/17 12:00 97.7 78 20 157/84 99 Room Air 09/25/17 11:31 74 158/75 09/25/17 11:30 74 158/75 09/25/17 08:00 103 09/25/17 08:00 97.5 74 18 158/75 100 Room Air 09/25/17 06:00 162/74 09/25/17 05:40 178/78 09/25/17 05:00 97.9 95 20 174/76 95 Room Air 09/25/17 04:00 86 09/25/17 00:00 97.9 95 20 168/76 100 Room Air 09/25/17 00:00 80 09/24/17 20:00 97.1 60 20 160/99 Room Air 09/24/17 20:00 72 General Appearance: no apparent distress, alert Cardiovascular: normal rate, regular rhythm Respiratory/Chest: lungs clear Abdomen: normal bowel sounds, non tender, soft Extremities: no swelling Intake and Output 09/24/17 09/25/17 19:00 07:00 Intake Total 360 ml 200 ml Balance 360 ml 200 ml Intake Oral 360 ml 200 ml # Voids 2 # Bowel Movements 1 Laboratory Tests Test 09/25/17 06:10 09/25/17 11:22 White Blood Count 8.1 K/UL (4.8-10.8) Red Blood Count 3.57 M/UL (4.20-5.40) L Hemoglobin 10.1 G/DL (12.0-16.0) L Hematocrit 31.3 % (37.0-47.0) L Mean Corpuscular Volume 88 FL (80-99) Mean Corpuscular Hemoglobin 28.4 PG (27.0-31.0) Mean Corpuscular Hemoglobin Concent 32.4 G/DL (32.0-36.0) Red Cell Distribution Width 13.7 % (11.6-14.8) Platelet Count 187 K/UL (150-450) Mean Platelet Volume 7.5 FL (6.5-10.1) Neutrophils (%) (Auto) 53.8 % (45.0-75.0) Lymphocytes (%) (Auto) 35.1 % (20.0-45.0) Monocytes (%) (Auto) 6.7 % (1.0-10.0) Eosinophils (%) (Auto) 3.2 % (0.0-3.0) H Basophils (%) (Auto) 1.2 % (0.0-2.0) Prothrombin Time 11.1 SEC (9.30-11.50) Prothromb Time International Ratio 1.1 (0.9-1.1) Sodium Level 141 MMOL/L (136-145) Potassium Level 3.5 MMOL/L (3.5-5.1) Chloride Level 107 MMOL/L (98-107) Carbon Dioxide Level 24 MMOL/L (21-32) Anion Gap 10 mmol/L (5-15) Blood Urea Nitrogen 13 mg/dL (7-18) Creatinine 0.9 MG/DL (0.55-1.30) Estimat Glomerular Filtration Rate mL/min (>60) Glucose Level 126 MG/DL (74-106) H Calcium Level 8.9 MG/DL (8.5-10.1) Urine Color Yellow Urine Appearance Clear Urine pH 5 (4.5-8.0) Urine Specific [place] 1.010 (1.005-1.035) Urine Protein 3+ (NEGATIVE) H Urine Glucose (UA) Negative (NEGATIVE) Urine Ketones 1+ (NEGATIVE) H Urine Occult Blood 2+ (NEGATIVE) H Urine Nitrite Negative (NEGATIVE) Urine Bilirubin Negative (NEGATIVE) Urine Urobilinogen Normal MG/DL (0.0-1.0) Urine Leukocyte Esterase 2+ (NEGATIVE) H Urine RBC 2-4 /HPF (0 - 2) H Urine WBC 5-10 /HPF (0 - 2) H Urine Squamous Epithelial Cells Few /LPF (NONE/OCC) Urine Bacteria Few /HPF (NONE) DAVID HAAS Sep 25, 2017 18:23
--- NOTE | 2017-09-25 19:09 | General Progress Note ---
Assessment/Plan Assessment/Plan This is an 87-year-old female, admitted with altered mental status/ encephalopathy and elevated troponin. The patient will be admitted to telemetry for the following medical problems: 1. Non-ST elevation myocardial infarction with evidence of elevated troponin. We will trend troponins.appreciate Cardiology consult. Continue with Plavix. Aspirin was discontinued by Cardiology. Currently, the patient denies any chest pain. 2. Altered mental status/ Acute encephalopathy. Appreciate Neurology consult. probable vascular dementia -follow-up urine culture, if negative may DC gene 3. Hypertension. Continue the patient's losartan. 4. Diabetes mellitus. The patient is on Humulin insulin 70/30 five units daily and insulin sliding scale will be ordered with ADA diet and soft pureed diet. 5.PAD: vascular consult, continue plavix; asa dced by cardiology due to risk for bleed is Full Code. Case will be discussed with the patient's family. 6. Acuter DVT left popliteal: will start Lovenox bid to bridge coumadin anticoagulation for 3 months, repeat us at that time - INR today 1.1-- for Coumadin 4 mg today - ff-up INR tomorrow 7. hypokalemia: improved, am bmp 8. Altered mental status: will order urinalysis and urine culture-- follow-up culture psych consult appreciated, Respirdol 1 mg hs for delirium DC planning SNF vs Home health Left VM to cristina Wesley [phone]-- to coordinate with DC planner intern re where patient will be discharged awaiting urine culture prior to dc home with HH or snf Subjective Date patient seen: Sep 25, 2017 Allergies: Coded Allergies: AVOCADO (Verified Allergy, Unknown, 09/19/17) Subjective patient is agitated and confused since this am attempting to get out of bed Objective Last 24 Hour Vital Signs Date Time Temp Pulse Resp B/P (MAP) Pulse Ox O2 Delivery O2 Flow Rate FiO2 09/25/17 17:53 87 153/83 09/25/17 15:30 97.2 92 20 127/85 100 Room Air 09/25/17 12:00 97.7 78 20 157/84 99 Room Air 09/25/17 11:31 74 158/75 09/25/17 11:30 74 158/75 09/25/17 08:00 103 09/25/17 08:00 97.5 74 18 158/75 100 Room Air 12/20/17 06:00 162/74 09/25/17 05:40 178/78 09/25/17 05:00 97.9 95 20 174/76 95 Room Air 09/25/17 04:00 86 09/25/17 00:00 97.9 95 20 168/76 100 Room Air 09/25/17 00:00 80 09/24/17 20:00 97.1 60 20 160/99 Room Air 09/24/17 20:00 72 Intake and Output 09/24/17 09/25/17 19:00 07:00 Intake Total 360 ml 200 ml Balance 360 ml 200 ml Intake Oral 360 ml 200 ml # Voids 2 # Bowel Movements 1 Laboratory Tests 09/25/17 06:10: White Blood Count 8.1, Red Blood Count 3.57L, Hemoglobin 10.1L, Hematocrit 31.3L , Mean Corpuscular Volume 88, Mean Corpuscular Hemoglobin 28.4, Mean Corpuscular Hemoglobin Concent 32.4, Red Cell Distribution Width 13.7, Platelet Count 187, Mean Platelet Volume 7.5, Neutrophils (%) (Auto) 53.8, Lymphocytes (% ) (Auto) 35.1, Monocytes (%) (Auto) 6.7, Eosinophils (%) (Auto) 3.2H, Basophils (%) (Auto) 1.2, Prothrombin Time 11.1, Prothromb Time International Ratio 1.1, Sodium Level 141, Potassium Level 3.5, Chloride Level 107, Carbon Dioxide Level 24, Anion Gap 10, Blood Urea Nitrogen 13, Creatinine 0.9, Estimat Glomerular Filtration Rate , Glucose Level 126H, Calcium Level 8.9 09/25/17 11:22: Urine Color Yellow, Urine Appearance Clear, Urine pH 5, Urine Specific [place] 1.010, Urine Protein 3+H, Urine Glucose (UA) Negative, Urine Ketones 1+H, Urine Occult Blood 2+H, Urine Nitrite Negative, Urine Bilirubin Negative, Urine Urobilinogen Normal, Urine Leukocyte Esterase 2+H, Urine RBC 2-4H, Urine WBC 5- 10H, Urine Squamous Epithelial Cells Few, Urine Bacteria Few Height (Feet): 5 Height (Inches): 4.00 Weight (Pounds): 140 General Appearance: no apparent distress, alert EENT: PERRL/EOMI, pharynx normal Neck: non-tender, supple Cardiovascular: normal rate, regular rhythm, no gallop/murmur, no JVD Respiratory/Chest: chest wall non-tender, normal breath sounds, no respiratory distress Abdomen: non tender, soft, no mass Extremities: non-tender, normal inspection, no calf tenderness Edema: no edema noted Arm (L), no edema noted Arm (R), no edema noted Leg (L), 1+ Leg (R), no edema noted Pedal (L), no edema noted Pedal (R), no edema noted Generalized Edema: trace edema Neurologic: house calls nurse practitioner II-XII grossly normal, oriented x 3, responsive Skin: warm/dry Gerald Judge MD Sep 25, 2017 19:09
[2017-09-25] MEDS: Atorvastatin 80mg tab ORAL SCH (20:26)
--- NOTE | 2017-09-25 21:30 | Progress Note ---
DATE: 09/25/2017 SUBJECTIVE: The patient is calm, still confused, decreased agitation and still has episodes of anxiety. MENTAL STATUS EXAMINATION: The patient is alert and oriented to time, self, place, and situation she is in. Mood is neutral to agitation. Affect is constricted. Congruent with mood. Thought process is concrete. Thought content, no suicidal or homicidal ideation. ASSESSMENT: 1. Encephalopathy. 2. Agitation. PLAN: We will continue current medications. Delia Freedman M.D. DR: JIM JOB#: [id number] CC:
[2017-09-26] VITALS: BP 127/74
[2017-09-26 04:00] VITALS: BP 110/84
[2017-09-26 08:00] VITALS: BP 113/76
[2017-09-26 09:00] LABS: ANION GAP 9 mmol/L (5-15); CALCIUM 8.8 MG/DL (8.5-10.1); CARBON DIOXIDE 25 MMOL/L (21-32); CHLORIDE 109 MMOL/L (98-107); CREATININE 0.8 MG/DL (0.55-1.30); POTASSIUM 2.8 MMOL/L (3.5-5.1); SODIUM 143 MMOL/L (136-145)
[2017-09-26 09:26] LABS: INR 1.1 (0.9-1.1)
[2017-09-26] MEDS: Vitamin B-12 500mcg tab ORAL SCH (11:06)
[2017-09-26] MEDS: Docusate 100mg cap ORAL SCH ×2 (11:06→18:18)
[2017-09-26] MEDS: Metoprolol Succinate XL 50mg tab ORAL SCH (11:10)
[2017-09-26] MEDS: Flonase Nasal Inhaler 16gm NASAL SCH (11:10)
[2017-09-26] MEDS: Enoxaparin 60mg Inj SUBQ SCH ×2 (11:13→21:07)
[2017-09-26 12:00] VITALS: BP 143/79
[2017-09-26 16:00] VITALS: BP 146/59
[2017-09-26] MEDS ORDERED: Tubing IV Secondary IV ONE (16:08)
[2017-09-26] MEDS ORDERED: NS 500ML ONE (16:08)
[2017-09-26] MEDS ORDERED: Warfarin Sodium 4mg PO ONE (17:00)
[2017-09-26] MEDS ORDERED: cefTRIAXone 1 GM in D5W 55 ML IVPB SCH (18:00)
[2017-09-26] MEDS: Montelukast 10mg tablet ORAL SCH (18:13)
--- NOTE | 2017-09-26 19:02 | Cardiology Progress Note ---
Assessment/Plan Assessment/Plan 1. Altered mentation. 2. Dementia. 3. Hypertension. 4. Hyperlipidemia. 5. Peripheral vascular disease. 6. Abnormal cardiac enzymes 7. dvt popliteal 8. short vt trop mildly abn she is quite demented mri neg for acute infarction tele sinus short svt on 09/25 no recurrence now on full anticoag for dvt with coumadin triple therapy is associated with sig bleeding risks will dc Ecotrin keep on plavix as well as anticoagulation with lmwh to coumadin inr 1.1n 09/24 low dose bb increase dose on statin dc plans per dr ang Subjective ROS Limited/Unobtainable: Yes Subjective confused Objective Last 24 Hour Vital Signs Date Time Temp Pulse Resp B/P (MAP) Pulse Ox O2 Delivery O2 Flow Rate FiO2 09/26/17 18:19 88 146/59 09/26/17 16:00 97.3 88 20 146/59 97 Room Air 09/26/17 12:00 88 09/26/17 12:00 97.2 83 18 143/79 95 Room Air 09/26/17 11:10 96 116/72 09/26/17 11:09 96 116/72 09/26/17 08:00 103 09/26/17 08:00 97.0 97 18 113/76 95 Room Air 09/26/17 04:00 97.0 82 20 110/84 100 Room Air 09/26/17 04:00 91 09/26/17 00:00 83 09/26/17 00:00 97.7 95 20 127/74 98 Room Air 09/25/17 20:00 97.7 95 20 127/74 Room Air 09/25/17 20:00 105 General Appearance: other - confused Cardiovascular: normal rate Respiratory/Chest: lungs clear, normal breath sounds Abdomen: normal bowel sounds, non tender, soft Extremities: non-tender, no swelling Intake and Output 09/25/17 09/26/17 19:00 07:00 Intake Total 120 ml Balance 120 ml Intake Oral 120 ml # Voids 3 # Bowel Movements 1 Laboratory Tests Test 09/26/17 08:00 Prothrombin Time 12.0 SEC (9.30-11.50) H Prothromb Time International Ratio 1.1 (0.9-1.1) Sodium Level 143 MMOL/L (136-145) Potassium Level 2.8 MMOL/L (3.5-5.1) L Chloride Level 109 MMOL/L (98-107) H Carbon Dioxide Level 25 MMOL/L (21-32) Anion Gap 9 mmol/L (5-15) Blood Urea Nitrogen 10 mg/dL (7-18) Creatinine 0.8 MG/DL (0.55-1.30) Estimat Glomerular Filtration Rate mL/min (>60) Glucose Level 85 MG/DL (74-106) Calcium Level 8.8 MG/DL (8.5-10.1) Microbiology Date/Time Source Procedure Growth Status 09/25/17 11:22 Straight Cath Urine Culture - Preliminary Resulted DAVID HAAS Sep 26, 2017 19:02
--- NOTE | 2017-09-26 20:02 | General Progress Note ---
Assessment/Plan Assessment/Plan This is an 87-year-old female, admitted with altered mental status/ encephalopathy and elevated troponin. The patient will be admitted to telemetry for the following medical problems: 1. Non-ST elevation myocardial infarction with evidence of elevated troponin. We will trend troponins.appreciate Cardiology consult. Continue with Plavix. Aspirin was discontinued by Cardiology. Currently, the patient denies any chest pain. 2. Altered mental status/ Acute encephalopathy. Appreciate Neurology consult. probable vascular dementia -follow-up urine culture, if negative may DC gene 3. Hypertension. Continue the patient's losartan. 4. Diabetes mellitus. The patient is on Humulin insulin 70/30 five units daily and insulin sliding scale will be ordered with ADA diet and soft pureed diet. 5.PAD: vascular consult, continue plavix; asa dced by cardiology due to risk for bleed is Full Code. Case will be discussed with the patient's family. 6. Acuter DVT left popliteal: will start Lovenox bid to bridge coumadin anticoagulation for 3 months, repeat us at that time - INR today 1.1-- for Coumadin 4 mg today - ff-up INR tomorrow 7. hypokalemia:give kdur 40 meq once, am bmp 8. Altered mental status: will order urinalysis and urine culture-- follow-up culture psych consult appreciated, Respirdol 1 mg hs for delirium start Rocephin 1 g iv and fu urine cultures DC planning SNF Left VM to cristina Wesley [phone]-- to coordinate with DC sr. merchandise planner re where patient will be discharged awaiting urine culture prior to dc home with HH or snf Subjective Date patient seen: Sep 26, 2017 Neurologic/Psychiatric: Reports: weakness Allergies: Coded Allergies: AVOCADO (Verified Allergy, Unknown, 09/19/17) All Systems: reviewed and negative except above Subjective patient appears somnolent but knows my name and that she is in the hospital Objective Last 24 Hour Vital Signs Date Time Temp Pulse Resp B/P (MAP) Pulse Ox O2 Delivery O2 Flow Rate FiO2 09/26/17 18:19 88 146/59 09/26/17 16:00 97.3 88 20 146/59 97 Room Air 09/26/17 12:00 88 09/26/17 12:00 97.2 83 18 143/79 95 Room Air 09/26/17 11:10 96 116/72 09/26/17 11:09 96 116/72 09/26/17 08:00 103 09/26/17 08:00 97.0 97 18 113/76 95 Room Air 09/26/17 04:00 97.0 82 20 110/84 100 Room Air 09/26/17 04:00 91 09/26/17 00:00 83 09/26/17 00:00 97.7 95 20 127/74 98 Room Air 09/25/17 20:00 97.7 95 20 127/74 Room Air 09/25/17 20:00 105 Intake and Output 09/25/17 09/26/17 19:00 07:00 Intake Total 120 ml Balance 120 ml Intake Oral 120 ml # Voids 3 # Bowel Movements 1 Laboratory Tests 09/26/17 08:00: Prothrombin Time 12.0H, Prothromb Time International Ratio 1.1, Sodium Level 143 , Potassium Level 2.8L, Chloride Level 109H, Carbon Dioxide Level 25, Anion Gap 9, Blood Urea Nitrogen 10, Creatinine 0.8, Estimat Glomerular Filtration Rate , Glucose Level 85, Calcium Level 8.8 Height (Feet): 5 Height (Inches): 4.00 Weight (Pounds): 140 General Appearance: no apparent distress EENT: PERRL/EOMI, pharynx normal Neck: non-tender, supple Cardiovascular: normal rate, regular rhythm, no gallop/murmur, no JVD Respiratory/Chest: chest wall non-tender, normal breath sounds, no respiratory distress Abdomen: non tender, soft, no mass Extremities: non-tender, normal inspection, no calf tenderness Edema: no edema noted Arm (L), no edema noted Arm (R), no edema noted Leg (L), no edema noted Leg (R), no edema noted Pedal (L), no edema noted Pedal (R), no edema noted Generalized Neurologic: industrial equipment wirer II-XII grossly normal, oriented x 3, responsive Gerald Judge MD Sep 26, 2017 20:02
[2017-09-26 20:31] VITALS: BP 115/75
[2017-09-26] MEDS: Atorvastatin 80mg tab ORAL SCH (21:10)
[2017-09-27 00:23] VITALS: BP 80/39
[2017-09-27 03:32] VITALS: BP 99/51
[2017-09-27 04:03] VITALS: BP 110/53
[2017-09-27 08:00] VITALS: BP 122/62
[2017-09-27 08:18] LABS: BASOPHILS % (AUTO) 1.4 % (0.0-2.0); LYMPHOCYTES % (AUTO) 43.1 % (20.0-45.0); MEAN CORPUSCULAR HEMOGLOBIN 27.5 PG (27.0-31.0); MEAN CORPUSCULAR HGB CONC 32.1 G/DL (32.0-36.0); MEAN CORPUSCULAR VOLUME 86 FL (80-99); MEAN PLATELET VOLUME 6.9 FL (6.5-10.1); MONOCYTES % (AUTO) 7.7 % (1.0-10.0); NEUTROPHILS % (AUTO) 45.8 % (45.0-75.0); PLATELET COUNT 186 K/UL (150-450); RED BLOOD COUNT 3.26 M/UL (4.20-5.40); RED CELL DISTRIBUTION WIDTH 13.3 % (11.6-14.8); WHITE BLOOD COUNT 5.6 K/UL (4.8-10.8)
[2017-09-27 08:34] LABS: ANION GAP 9 mmol/L (5-15); CALCIUM 7.7 MG/DL (8.5-10.1); CARBON DIOXIDE 23 MMOL/L (21-32); CHLORIDE 111 MMOL/L (98-107); POTASSIUM 3.6 MMOL/L (3.5-5.1); SODIUM 143 MMOL/L (136-145)
[2017-09-27 09:01] LABS: INR 1.4 (0.9-1.1); PROTHROMBIN TIME 14.5 SEC (9.30-11.50)
[2017-09-27] MEDS: Metoprolol Succinate XL 50mg tab ORAL SCH (10:42)
[2017-09-27] MEDS: Vitamin B-12 500mcg tab ORAL SCH (10:43)
[2017-09-27] MEDS: Docusate 100mg cap ORAL SCH (10:43)
[2017-09-27] MEDS: Enoxaparin 60mg Inj SUBQ SCH (10:53)
[2017-09-27] MEDS: Flonase Nasal Inhaler 16gm NASAL SCH (11:01)
[2017-09-27 12:00] VITALS: BP 129/60
[2017-09-27] MEDS ORDERED: Tubing IV Secondary IV ONE (15:56)
[2017-09-27] MEDS ORDERED: NS 275ml ONE (15:56)
--- NOTE | 2017-09-27 16:36 | General Progress Note ---
Assessment/Plan Status: stable Assessment/Plan encephalopathy risperdal 1mg qhs Subjective Date patient seen: Sep 26, 2017 Neurologic/Psychiatric: Reports: anxiety, depressed, emotional problems Allergies: Coded Allergies: AVOCADO (Verified Allergy, Unknown, 09/19/17) Subjective the pt is confused however less agitated Objective Last 24 Hour Vital Signs Date Time Temp Pulse Resp B/P (MAP) Pulse Ox O2 Delivery O2 Flow Rate FiO2 09/27/17 12:00 98.0 84 18 129/60 100 Room Air 09/27/17 10:43 86 122/62 09/27/17 10:42 86 122/62 09/27/17 08:00 97.5 86 19 122/62 100 Room Air 09/27/17 04:03 97.5 70 20 110/53 99 Room Air 09/27/17 04:00 71 09/27/17 03:32 97.5 71 20 99/51 99 Room Air 09/27/17 00:23 97.9 96 20 80/39 97 Room Air 09/27/17 00:00 74 09/26/17 20:31 97.3 87 20 115/75 98 Room Air 09/26/17 20:00 91 09/26/17 18:19 88 146/59 Intake and Output 09/26/17 09/27/17 19:00 07:00 # Voids 4 Laboratory Tests 09/27/17 07:30: White Blood Count 5.6, Red Blood Count 3.26L, Hemoglobin 9.0L, Hematocrit 28.0L , Mean Corpuscular Volume 86, Mean Corpuscular Hemoglobin 27.5, Mean Corpuscular Hemoglobin Concent 32.1, Red Cell Distribution Width 13.3, Platelet Count 186, Mean Platelet Volume 6.9, Neutrophils (%) (Auto) 45.8, Lymphocytes (% ) (Auto) 43.1, Monocytes (%) (Auto) 7.7, Eosinophils (%) (Auto) 2.0, Basophils ( %) (Auto) 1.4, Prothrombin Time 14.5H, Prothromb Time International Ratio 1.4H, Sodium Level 143, Potassium Level 3.6, Chloride Level 111H, Carbon Dioxide Level 23, Anion Gap 9, Blood Urea Nitrogen 13, Creatinine 1.0, Estimat Glomerular Filtration Rate , Glucose Level 85, Calcium Level 7.7L Height (Feet): 5 Height (Inches): 4.00 Weight (Pounds): 140 General Appearance: no apparent distress, lethargic, confused Neurologic: disoriented, depressed affect Delia Freedman M.D. Sep 27, 2017 16:36
[2017-09-27] MEDS ORDERED: Warfarin Sodium 4mg PO ONE (17:00)
--- NOTE | 2017-09-27 21:47 | Progress Note ---
DATE: 09/27/2017 SUBJECTIVE: The patient is more confused and is uncooperative. Not able to be engaged during the evaluation. ASSESSMENT: 1. Encephalopathy. 2. Agitation. PLAN: 1. We will continue the risperidone. 2. Provide the patient with supportive therapy and reality orientation. Delia Freedman M.D. DR: JIM JOB#: [id number] CC:
--- NOTE | 2017-09-30 19:20 | Cardiology Report ---
APPROVED REPORT EKG Measurement Heart [id number] Sinus rhythm with premature atrial complexes Minimal voltage criteria for LVH, may be normal variant Septal infarct, age undetermined Abnormal ECG
--- NOTE | 2017-10-02 04:00 | Consultation ---
DATE OF CONSULTATION: 09/20/2017 VASCULAR SURGERY CONSULTATION CONSULTING PHYSICIAN: Toby Siddiqui M.D. REQUESTING PHYSICIAN: Gerald Judge M.D. REASON FOR CONSULTATION: Left leg deep venous thrombosis and peripheral vascular arterial occlusive disease. HISTORY OF PRESENT ILLNESS: This is an 87-year-old female, who suffers from dementia. The patient was found to have left calf deep venous thrombosis. The patient is currently asymptomatic with no edema and with no pain. Vascular Surgery was consulted for further evaluation. Of note, the patient had a previous right leg tibial bypass graft. The patient is nonambulatory and has advanced dementia. No other complaints noted. PAST MEDICAL HISTORY: As above. History of hypertension, arterial occlusive disease, right leg tibial bypass was patent, obesity, dementia, hypertension, arthritis, coronary artery disease, newly diagnosed left leg deep venous thrombosis. MEDICATIONS: See attached MAR. ALLERGIES: There are no known drug allergies. SOCIAL HISTORY: Unobtainable. The patient has altered mental status and dementia. FAMILY HISTORY: Unobtainable, the patient has dementia. PHYSICAL EXAMINATION: VITAL SIGNS: The patient is afebrile 97.9, heart rate 93, blood pressure 151/81, saturation 100%, respirations 18. GENERAL: The patient is awake, but confused and disoriented. She has palpable radial pulses. No carotid bruits. LUNGS: Clear to auscultation bilaterally. HEART: Regular rate and rhythm. ABDOMEN: Soft and nontender. EXTREMITIES: She has palpable femoral pulses, palpable right leg bypass graft pulse. Feet are warm with intact pedal pulses bilaterally. There is no evidence of edema. No calf tenderness. LABORATORY AND DIAGNOSTIC DATA: Revealed WBC of 6.6, hemoglobin 10.5, and platelet count is 191,000. BUN is 7, creatinine 0.8, sodium is 142, potassium 3.5, chloride 110, and CO2 22. Duplex and imaging were reviewed. IMPRESSION: 1. Left calf deep venous thrombosis. 2. Patent right leg tibial bypass graft. 3. History of arterial occlusive disease. 4. History of hypertension. 5. Dementia. 6. Obesity. 7. Arthritis. 8. History of coronary artery disease and non-ST elevation myocardial infarction. 9. Diabetes mellitus. PLAN AND RECOMMENDATION: 1. Continue anticoagulation for three months. The patient will need a followup of lower extremity Duplex to assess clots on the left leg and the right leg bypass graft. 2. Continue deep venous thrombosis and decubitus precaution. 3. Optimize nutrition. 4. Optimize Cardiology followup per database management system specialist. 5. The patient is cleared for discharge from Vascular Surgery standpoint. 6. The above is discussed at length with the patient's nurse at bedside. Toby Siddiqui M.D. DR: Heather JOB#: [id number] CC: BARBARA
--- NOTE | 2017-10-02 12:56 | Discharge Summary ---
Discharge Summary Hospital Course Date of Admission Sep 18, 2017 at 21:36 Date of Discharge Sep 27, 2017 at 15:57 Admitting Diagnosis AMS,NSTEMI HPI Jeana Estevez is a 87 year old female who was admitted on Sep 18, 2017 at 21:36 for Altered Mental Status, Nstemi Hospital Course dc summary #[id number] Discharge Medications Continued Medications: Insulin Lispro (Humalog) 100 Unit/1 Ml Cartridge Unknown Dose SUBQ, #1 UNITS 0 Refills Discharge Discharge Disposition Patient was discharged to SNF/Subacute Facility(03) Discharge Diagnoses: Discharge Instructions Discharge Instructions Special Instructions I have been assigned to complete a D/C Summary on this account. I was not involved in the patient management Jimmy StantonKelley cote NP Oct 02, 2017 12:56
--- NOTE | 2017-10-02 19:15 | Discharge Summary 2 SIG ---
DATE OF ADMISSION: 09/18/2017 DATE OF DISCHARGE: 09/27/2017 REASON FOR ADMISSION: 87-year-old female with past medical history significant for hypertension, diabetes, chronic kidney disease, who was recently discharged from [facility] for possible UTI, brought to emergency room for evaluation. According to the family over the last few days, the patient was becoming increasingly confused and altered. In the emergency department on further evaluation found elevated troponin; however, EKG did not show any acute ischemic changes. The patient denied chest pain or shortness of breath, but the patient appeared to be quite confused. Vital signs were stable, pulse oximetry was stable on room air. Chest x-ray revealed no acute cardiopulmonary process. CT of the head revealed no acute intracranial pathology, but was consistent with chronic ischemic changes. No leukocytosis. Mild anemia. Hemoglobin -10.5, hematocrit -34.6. Lactic acid-1.2. Glucose- 189. Electrolytes stable. Troponin -0.314. ProBNP- 4268. In the emergency department, the patient was given aspirin and Lovenox. The patient was admitted for further management to [facility] with diagnosis of altered level of consciousness and non-STEMI. HOSPITAL COURSE: The patient was admitted. Cardiology, Neurology, Vascular Surgery, and psychiatric evaluations were requested. Story Reader seen and evaluated the patient. The patient had a venous duplex done and found to have acute DVT in the left popliteal vein. The patient was started on anticoagulation. The patient was also on aspirin and Plavix. Per water taxi driver, triple anticoagulation associated with increased risk of bleeding. Aspirin was discontinued. Continue Plavix and Coumadin as per water taxi driver. Serial troponin were followed. Echocardiogram revealed preserved ejection fraction of 60% to 65%, moderate left ventricular hypertrophy , and right ventricular systolic pressure of 33. The patient was on a beta- boy. Dose was increased to control blood pressure. The patient was on anticoagulation with Eliquis for DVT. Vascular surgeon seen and evaluated the patient and recommended anticoagulation for three months and then repeated venous duplex. The patient had tibial vein bypass on the right leg, which appeared to be patent as per vascular surgeon. Arterial duplex bilateral lower extremities was essentially negative. Vascular surgeon cleared the patient for discharge. Per water taxi driver, who closely followed the patient, continue Plavix, beta- boy, statin, and anticoagulation with Eliquis. The patient had one episode of short nonsustained ventricular tachycardia , without recurrence. Story Reader cleared the patient for discharge. Neurologist initially seen and evaluated the patient for altered mental status. MRI of the brain revealed no acute intracranial pathology, but was consistent with the age related changes. According to neurologist, the patient likely had senile dementia with behavioral abnormalities and transient confusion contributed by underlying hyperglycemia and metabolic derangement. Lipid panel was stable. TSH was within normal limits. Troponin was trending down. Blood sugar was managed with 70/30 insulin and sliding scale of insulin as needed. The patient was stable for transfer to [facility]. FINAL DIAGNOSES: 1. Non-ST elevation myocardial infarction. 2. Acute left lower extremity deep venous thrombosis. 3. Acute encephalopathy. 4. Hypertension. 5. Peripheral arterial disease. 6. Right leg tibial vein bypass, patent. 7. Coronary artery disease. 8. Obesity. 9. Arthritis. 10. 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 11. Diabetes mellitus. 12. Hyperlipidemia. 13. Nonsustained ventricular tachycardia. DISCHARGE MEDICATIONS: See medication reconciliation list. DISCHARGE INSTRUCTIONS: The patient was discharged to [facility]. Followup with medical doctor at the facility. Gerald Judge M.D. I have been assigned to dictate discharge summary on this account and I was not involved in the patient's management. Kelley AcostaSt. Peter'S Health PartnersNarda N.PAlfreda DR: Bharti JOB#: [id number] CC: BARBARA
--- NOTE | 2017-10-03 00:10 | Diagnostic Imaging Report ---
APPROVED REPORT CPT Code: 69373 Symptoms Comments: PAIN RIGHT LEG: Common femoral artery waveform analysis is within normal limits at rest. Color flow duplex sonography reveals mild calcification throughout the superficial femoral and popliteal arteries. There is no evidence of significant stenosis or occlusion within these segments. The tibioperoneal trunk was not well visualized. The distal posterior tibial artery is also mildly calcified. The dorsalis pedis artery was not well visualized. Doppler tibial artery waveform analysis is monophasic, consistent with mild ischemia at rest. LEFT LEG: Common femoral artery waveform analysis is within normal limits at rest. Color flow duplex sonography reveals moderate calcification throughout the superficial femoral artery. An occlusion was noted at the distal segment of the superficial femoral artery. Reconstitution is seen in the popliteal artery. No flow was detected in the proximal posterior tibial artery. The distal posterior tibial artey is patent. The dorsalis pedis artery was not well visualized. Doppler tibial artery waveform analysis is monophasic, consistent with moderate ischemia at rest.
--- NOTE | 2017-10-03 00:12 | Diagnostic Imaging Report ---
APPROVED REPORT CPT Code: 30402 Present Symptoms Comments: PAIN Technically difficult study due to vessel depth (mid-thigh and calf area) and pain RIGHT LEG: Venous imaging reveals a patent deep venous system. There is no evidence of thrombus within the femoral, and popliteal veins. Calf veins not well visualized. The greater saphenous vein is also within normal limits. Doppler indicates normal spontaneous flow within these segments. LEFT LEG: Venous imaging reveals acute thrombus in the popliteal vein. Imaging also reveals patency of the common femoral, and superficial femoral veins. Calf veins not well visualized. Greater saphenous vein also within normal limits. BRITTANY Gentile was notified of abnormal results at 1500 hours.
== END 2017-09-27 15:57 | DRG 280 ==
LOC: EDBD 19:32 → EMR 21:28 → EDBEDREQ 21:36 → 2W 21:36 → EDBEDREQSVC 21:36 → EDBEDREQ 21:38 → 2E 09-19 01:31
DX: I21.4 Non-ST elevation (NSTEMI) myocardial infarction (principal); G92 Toxic encephalopathy; I82.432 Acute embolism and thrombosis of left popliteal vein; G82.20 Paraplegia, unspecified; I47.1 Supraventricular tachycardia; F01.50 Vascular dementia, unspecified severity, without behavioral disturbance, psychotic disturbance, mood disturbance, and anxiety; I73.9 Peripheral vascular disease, unspecified; E66.9 Obesity, unspecified; Z68.24 Body mass index [BMI] 24.0-24.9, adult; I12.9 Hypertensive chronic kidney disease with stage 1 through stage 4 chronic kidney disease, or unspecified chronic kidney disease; E11.22 Type 2 diabetes mellitus with diabetic chronic kidney disease; N18.9 Chronic kidney disease, unspecified; Z89.412 Acquired absence of left great toe; I25.10 Atherosclerotic heart disease of native coronary artery without angina pectoris; E78.5 Hyperlipidemia, unspecified; E87.6 Hypokalemia; Z79.4 Long term (current) use of insulin; Z95.820 Peripheral vascular angioplasty status with implants and grafts
CPT/HCPCS: 36415; 70450; 70551; 71010; 80048; 80053; 80061; 81003; 82140; 82550; 82553; 82962; 83036; 83605; 83880; 84100; 84439; 84443; 84481; 84484; 85025; 85610; 85730; 87040; 87086; 93005; 93306; 93925; 93970; J1815; J8499